=== PATIENT | female | born 1945 | race Caucasian/White ===

== ENCOUNTER → 2016-12-14 | Outpatient (REF) | payer MEDICARE ==
[~2016-12-14] MED LIST: /PRAV20TA; /WARF25TA; ACET65TA; ASPIRIN; ATEN50TA2; BENA40TA2; FURO20TA2; KLOR10TA; METF750T; MILKSUS; MULTIVIT; PEPC20TA2; PERC5TAB8; [UNRECOGNIZED DRUG - OTHER]; [UNRECOGNIZED DRUG - REMARK]; dulcolax
[2016-12-14 17:47] LABS: ALBUMIN 3.6 GM/DL (3.2-5.2); ALBUMIN/GLOBULIN RATIO 1.06 (1.00-1.93); ALKALINE PHOSPHATASE 79 U/L (45-117); ALT/SGPT 41 U/L (12-78); ANION GAP 9 MEQ/L (8-16); AST/SGOT 36 U/L (15-37); BILIRUBIN,TOTAL 0.5 MG/DL (0.2-1.0); BLOOD UREA NITROGEN 13 MG/DL (7-18); CALCIUM LEVEL 9.4 MG/DL (8.8-10.2); CARBON DIOXIDE LEVEL 28 MEQ/L (21-32); CHLORIDE LEVEL 102 MEQ/L (98-107); CHOLESTEROL LEVEL 150 MG/DL (<200); CREATININE FOR GFR 0.67 MG/DL (0.55-1.02); GLOMERULAR FILTRATION RATE > 60.0 (>39); GLUCOSE, FASTING 119 MG/DL (83-110); POTASSIUM SERUM 4.4 MEQ/L (3.5-5.1); SODIUM LEVEL 139 MEQ/L (136-145); TRIGLYCERIDES LEVEL 137 MG/DL (<150)
== END ==
LOC: M SFHCCAPE 08:37
PROVIDERS: ATTEND Physician Assistant
DX: I10 Essential (primary) hypertension (principal); E11.8 Type 2 diabetes mellitus with unspecified complications; E78.2 Mixed hyperlipidemia

== ENCOUNTER → 2017-03-11 | Outpatient (REF) | payer MEDICARE ==
[2017-03-11 17:06] LABS: ALBUMIN 3.7 GM/DL (3.2-5.2); ALBUMIN/GLOBULIN RATIO 1.12 (1.00-1.93); ALKALINE PHOSPHATASE 73 U/L (45-117); ALT/SGPT 43 U/L (12-78); ANION GAP 10 MEQ/L (8-16); AST/SGOT 36 U/L (15-37); BILIRUBIN,TOTAL 0.5 MG/DL (0.2-1.0); BLOOD UREA NITROGEN 9 MG/DL (7-18); CALCIUM LEVEL 9.7 MG/DL (8.8-10.2); CARBON DIOXIDE LEVEL 27 MEQ/L (21-32); CHLORIDE LEVEL 102 MEQ/L (98-107); CREATININE FOR GFR 0.68 MG/DL (0.55-1.02); GLOMERULAR FILTRATION RATE > 60.0 (>39); GLUCOSE, FASTING 178 MG/DL (83-110); POTASSIUM SERUM 4.7 MEQ/L (3.5-5.1); SODIUM LEVEL 139 MEQ/L (136-145)
== END ==
LOC: M SFHCCAPE 07:20
PROVIDERS: ATTEND Physician Assistant
DX: E11.9 Type 2 diabetes mellitus without complications (principal)

== ENCOUNTER → 2017-06-16 | Outpatient (REF) | payer MEDICARE ==
[2017-06-16 18:46] LABS: BASO % 0.6 % (0.0-1.0); EOS # 0.1 10^3/uL (0.0-0.50); EOS % 2.8 % (0.0-3.0); IMMATURE GRANULOCYTE % 0.2 % (0-0); LYMPH # 1.7 10^3/uL (1.5-4.5); LYMPH % 36.6 % (24.0-44.0); MEAN CORPUSCULAR HEMOGLOBIN 26.6 pg (27.0-33.0); MEAN CORPUSCULAR HGB CONC 31.1 g/dl (32.0-36.5); MEAN CORPUSCULAR VOLUME 85.6 fl (80.0-96.0); MONO # 0.4 10^3/uL (0.0-0.8); MONO % 9.2 % (0.0-5.0); NEUTROPHILS # 2.4 10^3/uL (1.8-7.7); NEUTROPHILS % 50.6 % (36.0-66.0); PLATELET COUNT, AUTOMATED 146 10^3/uL (150-450); RED CELL DISTRIBUTION WIDTH 15.7 % (11.5-14.5); WHITE BLOOD COUNT 4.7 10^3/uL (4.0-10.0)
[2017-06-16 19:03] LABS: ALBUMIN 3.7 GM/DL (3.2-5.2); ALBUMIN/GLOBULIN RATIO 1.12 (1.00-1.93); ALKALINE PHOSPHATASE 85 U/L (45-117); ALT/SGPT 45 U/L (12-78); ANION GAP 9 MEQ/L (8-16); AST/SGOT 43 U/L (7-37); BILIRUBIN,TOTAL 0.7 MG/DL (0.2-1.0); BLOOD UREA NITROGEN 10 MG/DL (7-18); CALCIUM LEVEL 9.7 MG/DL (8.8-10.2); CARBON DIOXIDE LEVEL 28 MEQ/L (21-32); CHLORIDE LEVEL 101 MEQ/L (98-107); CHOLESTEROL LEVEL 144 MG/DL (<200); CREATININE FOR GFR 0.61 MG/DL (0.55-1.02); FREE T4 1.18 NG/DL (0.76-1.46); GLOMERULAR FILTRATION RATE > 60.0 (>39); GLUCOSE, FASTING 127 MG/DL (83-110); POTASSIUM SERUM 4.3 MEQ/L (3.5-5.1); SODIUM LEVEL 138 MEQ/L (136-145); TRIGLYCERIDES LEVEL 166 MG/DL (<150)
== END ==
LOC: M SFHCCAPE 07:18
PROVIDERS: ATTEND Physician Assistant
DX: E11.9 Type 2 diabetes mellitus without complications (principal); E78.2 Mixed hyperlipidemia

== ENCOUNTER → 2017-11-09 | Outpatient (REF) | payer MEDICARE ==
[2017-11-09 16:44] LABS: BASO % 0.5 % (0.0-1.0); EOS # 0.2 10^3/uL (0.0-0.50); EOS % 3.5 % (0.0-3.0); HEMATOCRIT 37.6 % (36.0-47.0); HEMOGLOBIN 11.9 g/dl (12.0-15.5); IMMATURE GRANULOCYTE % 0.2 % (0-3.0); LYMPH # 1.8 10^3/uL (1.5-4.5); LYMPH % 30.8 % (24.0-44.0); MEAN CORPUSCULAR HEMOGLOBIN 26.3 pg (27.0-33.0); MEAN CORPUSCULAR HGB CONC 31.6 g/dl (32.0-36.5); MONO # 0.5 10^3/uL (0.0-0.8); MONO % 8.6 % (0.0-5.0); NEUTROPHILS # 3.2 10^3/uL (1.8-7.7); NEUTROPHILS % 56.4 % (36.0-66.0); PLATELET COUNT, AUTOMATED 131 10^3/uL (150-450); RED BLOOD COUNT 4.53 10^6/uL (4.00-5.40); RED CELL DISTRIBUTION WIDTH 15.7 % (11.5-14.5); WHITE BLOOD COUNT 5.7 10^3/uL (4.0-10.0)
[2017-11-09 17:12] LABS: ALBUMIN 3.5 GM/DL (3.2-5.2); ALBUMIN/GLOBULIN RATIO 1.03 (1.00-1.93); ALKALINE PHOSPHATASE 77 U/L (45-117); ALT/SGPT 81 U/L (12-78); ANION GAP 10 MEQ/L (8-16); AST/SGOT 77 U/L (7-37); BILIRUBIN,TOTAL 0.3 MG/DL (0.2-1.0); BLOOD UREA NITROGEN 13 MG/DL (7-18); CALCIUM LEVEL 9.5 MG/DL (8.8-10.2); CARBON DIOXIDE LEVEL 24 MEQ/L (21-32); CHLORIDE LEVEL 105 MEQ/L (98-107); CHOLESTEROL LEVEL 143 MG/DL (<200); CHOLESTEROL RISK RATIO 3.972 (<5); CREATININE FOR GFR 0.69 MG/DL (0.55-1.30); FREE T4 1.13 NG/DL (0.76-1.46); GLOMERULAR FILTRATION RATE > 60.0 (>39); GLUCOSE, FASTING 132 MG/DL (70-100); HDL CHOLESTEROL 36 MG/DL (>40); LDL CHOLESTEROL 73.6 MG/DL (<100); NON-HDL-C 107 MG/DL; POTASSIUM SERUM 4.5 MEQ/L (3.5-5.1); SODIUM LEVEL 139 MEQ/L (136-145); TOTAL PROTEIN 6.9 GM/DL (6.4-8.2); TRIGLYCERIDES LEVEL 167 MG/DL (<150)
[2017-11-09 23:22] LABS: ESTIMATED AVERAGE GLUCOSE 192 MG/DL (60-110); HEMOGLOBIN A1c 8.3 %
== END ==
LOC: M SFHCCAPE 07:47
DX: E78.2 Mixed hyperlipidemia (principal); R94.6 Abnormal results of thyroid function studies; E11.9 Type 2 diabetes mellitus without complications
CPT/HCPCS: 84443

== ENCOUNTER → 2017-11-29 | Outpatient (CLI) | payer MEDICARE | LOC: M RAD 07:00 | DX: R74.8 Abnormal levels of other serum enzymes (principal); K76.0 Fatty (change of) liver, not elsewhere classified | CPT/HCPCS: 76700 ==

== ENCOUNTER → 2018-02-07 | Outpatient (REF) | payer MEDICARE ==
[2018-02-07 16:19] LABS: BASO % 0.4 % (0.0-1.0); EOS # 0.3 10^3/uL (0.0-0.50); EOS % 5.3 % (0.0-3.0); HEMATOCRIT 38.1 % (36.0-47.0); HEMOGLOBIN 12.2 g/dl (12.0-15.5); IMMATURE GRANULOCYTE % 0.2 % (0-3.0); LYMPH # 1.5 10^3/uL (1.5-4.5); LYMPH % 31.2 % (24.0-44.0); MEAN CORPUSCULAR HEMOGLOBIN 26.9 pg (27.0-33.0); MEAN CORPUSCULAR VOLUME 84.1 fl (80.0-96.0); MONO # 0.4 10^3/uL (0.0-0.8); MONO % 8.6 % (0.0-5.0); NEUTROPHILS # 2.6 10^3/uL (1.8-7.7); NEUTROPHILS % 54.3 % (36.0-66.0); PLATELET COUNT, AUTOMATED 145 10^3/uL (150-450); RED BLOOD COUNT 4.53 10^6/uL (4.00-5.40); RED CELL DISTRIBUTION WIDTH 15.4 % (11.5-14.5); WHITE BLOOD COUNT 4.9 10^3/uL (4.0-10.0)
[2018-02-07 16:44] LABS: ALBUMIN 3.7 GM/DL (3.2-5.2); ALBUMIN/GLOBULIN RATIO 1.19 (1.00-1.93); ALKALINE PHOSPHATASE 68 U/L (45-117); ALT/SGPT 29 U/L (12-78); ANION GAP 10 MEQ/L (8-16); AST/SGOT 28 U/L (7-37); BILIRUBIN,TOTAL 0.4 MG/DL (0.2-1.0); BLOOD UREA NITROGEN 8 MG/DL (7-18); CALCIUM LEVEL 9.7 MG/DL (8.8-10.2); CARBON DIOXIDE LEVEL 28 MEQ/L (21-32); CHLORIDE LEVEL 102 MEQ/L (98-107); CHOLESTEROL LEVEL 142 MG/DL (<200); CHOLESTEROL RISK RATIO 3.837 (<5); CREATININE FOR GFR 0.57 MG/DL (0.55-1.30); GLOMERULAR FILTRATION RATE > 60.0 (>39); GLUCOSE, FASTING 133 MG/DL (70-100); HDL CHOLESTEROL 37 MG/DL (>40); LDL CHOLESTEROL 67.2 MG/DL (<100); NON-HDL-C 105 MG/DL; POTASSIUM SERUM 4.3 MEQ/L (3.5-5.1); SODIUM LEVEL 140 MEQ/L (136-145); TOTAL PROTEIN 6.8 GM/DL (6.4-8.2); TRIGLYCERIDES LEVEL 189 MG/DL (<150)
[2018-02-07 18:03] LABS: ESTIMATED AVERAGE GLUCOSE 163 MG/DL (60-110); HEMOGLOBIN A1c 7.3 %
== END ==
LOC: M SFHCCAPE 07:43
DX: E11.9 Type 2 diabetes mellitus without complications (principal); E78.2 Mixed hyperlipidemia
CPT/HCPCS: 80053

== ENCOUNTER → 2018-06-20 | Outpatient (REF) | payer MEDICARE ==
[2018-06-20 17:48] LABS: ALBUMIN 3.7 GM/DL (3.2-5.2); ALBUMIN/GLOBULIN RATIO 1.19 (1.00-1.93); ALKALINE PHOSPHATASE 73 U/L (45-117); ALT/SGPT 25 U/L (12-78); ANION GAP 8 MEQ/L (8-16); AST/SGOT 23 U/L (7-37); BILIRUBIN,TOTAL 0.5 MG/DL (0.2-1.0); BLOOD UREA NITROGEN 12 MG/DL (7-18); CALCIUM LEVEL 9.7 MG/DL (8.8-10.2); CARBON DIOXIDE LEVEL 27 MEQ/L (21-32); CHLORIDE LEVEL 101 MEQ/L (98-107); CHOLESTEROL LEVEL 161 MG/DL (<200); CHOLESTEROL RISK RATIO 3.833 (<5); CREATININE FOR GFR 0.72 MG/DL (0.55-1.30); GLOMERULAR FILTRATION RATE > 60.0 (>39); GLUCOSE, FASTING 143 MG/DL (70-100); HDL CHOLESTEROL 42 MG/DL (>40); LDL CHOLESTEROL 85 MG/DL (<100); NON-HDL-C 119 MG/DL; POTASSIUM SERUM 4.3 MEQ/L (3.5-5.1); SODIUM LEVEL 136 MEQ/L (136-145); TOTAL PROTEIN 6.8 GM/DL (6.4-8.2); TRIGLYCERIDES LEVEL 170 MG/DL (<150)
[2018-06-20 17:54] LABS: BASO % 0.4 % (0.0-1.0); EOS # 0.2 10^3/uL (0.0-0.50); EOS % 3.1 % (0.0-3.0); HEMATOCRIT 38.5 % (36.0-47.0); HEMOGLOBIN 12.2 g/dl (12.0-15.5); IMMATURE GRANULOCYTE % 0.4 % (0-3.0); LYMPH # 1.4 10^3/uL (1.5-4.5); LYMPH % 28.4 % (24.0-44.0); MEAN CORPUSCULAR HGB CONC 31.7 g/dl (32.0-36.5); MEAN CORPUSCULAR VOLUME 85.2 fl (80.0-96.0); MONO # 0.5 10^3/uL (0.0-0.8); MONO % 9.5 % (0.0-5.0); NEUTROPHILS # 2.8 10^3/uL (1.8-7.7); NEUTROPHILS % 58.2 % (36.0-66.0); PLATELET COUNT, AUTOMATED 122 10^3/uL (150-450); RED BLOOD COUNT 4.52 10^6/uL (4.00-5.40); RED CELL DISTRIBUTION WIDTH 15.5 % (11.5-14.5); WHITE BLOOD COUNT 4.8 10^3/uL (4.0-10.0)
[2018-06-20 18:09] LABS: ESTIMATED AVERAGE GLUCOSE 169 MG/DL (60-110); HEMOGLOBIN A1c 7.5 %
== END ==
LOC: M SFHCCAPE 08:31
DX: D69.6 Thrombocytopenia, unspecified (principal); I10 Essential (primary) hypertension; E11.9 Type 2 diabetes mellitus without complications
CPT/HCPCS: 80053

== ENCOUNTER → 2018-06-27 | Outpatient (REF) | payer MEDICARE ==
[2018-06-27 17:37] LABS: MALB URINE SIEMENS 8.7 MG/L; MAU/CREAT RATIO 7.6 MCG/MG (0.0-30.0)
== END ==
LOC: M SFHCCAPE 16:19
PROVIDERS: ATTEND Physician Assistant
DX: E11.9 Type 2 diabetes mellitus without complications (principal); Z23 Encounter for immunization
CPT/HCPCS: 82043; 90682; 90732; G0008; G0009; G0463

== ENCOUNTER → 2018-11-08 | Outpatient (REF) | payer MEDICARE ==
[~2018-11-08] MED LIST changes: -/PRAV20TA; -/WARF25TA; +COUM1TAB18; +PRAV1TAB39
[2018-11-08 17:46] LABS: BASO % 0.4 % (0.0-1.0); EOS # 0.2 10^3/uL (0.0-0.50); EOS % 3.5 % (0.0-3.0); HEMOGLOBIN 12.1 g/dl (12.0-15.5); LYMPH # 1.8 10^3/uL (1.5-4.5); LYMPH % 34.4 % (24.0-44.0); MEAN CORPUSCULAR HEMOGLOBIN 26.6 pg (27.0-33.0); MEAN CORPUSCULAR VOLUME 85.7 fl (80.0-96.0); MONO # 0.4 10^3/uL (0.0-0.8); MONO % 8.3 % (0.0-5.0); NEUTROPHILS # 2.7 10^3/uL (1.8-7.7); NEUTROPHILS % 53.2 % (36.0-66.0); PLATELET COUNT, AUTOMATED 160 10^3/uL (150-450); RED BLOOD COUNT 4.55 10^6/uL (4.00-5.40); WHITE BLOOD COUNT 5.1 10^3/uL (4.0-10.0)
[2018-11-08 17:49] LABS: ALBUMIN 3.6 GM/DL (3.2-5.2); ALT/SGPT 29 U/L (12-78); BILIRUBIN,TOTAL 0.5 MG/DL (0.2-1.0); BLOOD UREA NITROGEN 14 MG/DL (7-18); CALCIUM LEVEL 10.2 MG/DL (8.8-10.2); CARBON DIOXIDE LEVEL 25 MEQ/L (21-32); CHLORIDE LEVEL 104 MEQ/L (98-107); CHOLESTEROL LEVEL 181 MG/DL (<200); CHOLESTEROL RISK RATIO 4.209 (<5); CREATININE FOR GFR 0.66 MG/DL (0.55-1.30); GLOMERULAR FILTRATION RATE > 60.0 (>39); GLUCOSE, FASTING 137 MG/DL (70-100); HDL CHOLESTEROL 43 MG/DL (>40); LDL CHOLESTEROL 99 MG/DL (<100); NON-HDL-C 138 MG/DL; POTASSIUM SERUM 4.3 MEQ/L (3.5-5.1); SODIUM LEVEL 137 MEQ/L (136-145); TOTAL PROTEIN 6.9 GM/DL (6.4-8.2); TRIGLYCERIDES LEVEL 194 MG/DL (<150)
[2018-11-08 17:52] LABS: HEMOGLOBIN A1c 8.4 %
[2018-11-09 10:51] LABS: HEPATITIS C VIRUS ABY INDEX 0.1 INDEX (<0.8)
[2018-11-09 10:52] LABS: HIV 1&2 SCREEN CENTAUR NEGATIVE (NEGATIVE)
== END ==
LOC: M SFHCCAPE 07:21
PROVIDERS: ATTEND Physician Assistant
DX: D69.6 Thrombocytopenia, unspecified (principal); E11.9 Type 2 diabetes mellitus without complications; E78.2 Mixed hyperlipidemia

== ENCOUNTER 2019-01-01 08:07 | Emergency (ER) | payer MEDICARE ==
[~2019-01-01] VITALS: Ht 160 cm; Wt 87.3 kg
[2019-01-01] MEDS ORDERED: MORPHINE 2 MG/ML 1ML SYRINGE (J2270) IV PRN (09:45)
[2019-01-01] MEDS ORDERED: ONDANSETRON 4MG/2ML VIAL (J2405) IV ONE (09:45)
--- NOTE | 2019-01-01 10:27 | REP ---
LUMBAR SPINE, FIVE VIEWS: Hospital course Right sciatica. There is no acute fracture or subluxation. There is an old compression fracture of the L3 vertebral body with minimal height loss. The lumbar intervertebral discs are decreased in height consistent with disc degeneration. Osteophytes are present throughout the lumbar spine. There is narrowing of the L4-5 and L5-S1 facet joints. IMPRESSION: Degenerative change as described above. Electronically Signed by Nahid Enciso MD 01/01/2019 10:37 A
--- NOTE | 2019-01-01 12:25 | REP ---
MR LUMBAR SPINE WITHOUT CONTRAST: HISTORY: Right L5-S1 radicular pain. Decreased signal intensity on T2-weighted images is present in the lumbar intervertebral discs. The discs are decreased in height. These findings are consistent with disc degeneration. A diffuse disc bulge is present at the L1-2 level. There is hypertrophy of the ligamenta flava and posterior articulating facets. These findings produce minimal central canal stenosis. The L1 nerves exit the neural foramina without compression. A diffuse disc bulge is present at the L2-3 level. There is hypertrophy of the ligamenta flava and posterior articulating facets. These findings produced mild central canal stenosis. The L2 nerves exit the neural foramina without compression. A diffuse disc bulge is present at the L3-4 level. There is hypertrophy of the ligamenta flava and posterior articulating facets. These findings produce mild central canal stenosis. The L3 nerves exit the neural foramina without compression. A diffuse disc bulge and small central disc protrusion are present at the L4-5 level. There is hypertrophy of the ligamenta flava and posterior articulating facets. These findings produce severe central canal stenosis. The L4 nerves exit the neural foramina without compression. A diffuse disc bulge is present at the L5-S1 level. There is minimal compression of the thecal sac. There is hypertrophy of the posterior articulating facets. The L5 nerves exit the neural foramina without compression. There is an expansile lesion in the left L5 facet and lamina. Decreased signal intensity on T1 weighted images is present in the L1 vertebral body. There is right posterior expansion with minimal thecal sac compression. These findings are consistent with a metastases. Increased signal intensity on T2-weighted images is present in the endplates of the L2 through L5 vertebral bodies. This represents degenerative change. There is an old compression fracture of the L3 vertebral body with minimal height loss. There is no subluxation. IMPRESSION: 1. Minimal central canal stenosis at the L1-2 level secondary to disc bulge, ligamentous and facet hypertrophy. 2. Mild central canal stenosis at the L2-3 and L3-4 levels secondary to disc bulge, ligamentous and facet hypertrophy. 3. Severe central canal stenosis at the L4-5 level secondary to disc bulge, disc protrusion, ligamentous and facet hypertrophy. 4. Diffuse disc bulge at the L5-S1 level with minimal thecal sac compression. 5. There are metastatic lesions in the L1 vertebral body and left L5 facet and lamina. There is minimal expansion of the L1 vertebral body with minimal thecal sac compression. Electronically Signed by Nahid Enciso MD 01/01/2019 12:53 P
[2019-01-01 13:01] LABS: BASO % 0.2 % (0.0-1.0); EOS % 0.7 % (0.0-3.0); HEMATOCRIT 36.8 % (36.0-47.0); HEMOGLOBIN 11.6 g/dl (12.0-15.5); LYMPH # 1.9 10^3/uL (1.5-4.5); LYMPH % 32.4 % (24.0-44.0); MEAN CORPUSCULAR HEMOGLOBIN 26.4 pg (27.0-33.0); MEAN CORPUSCULAR HGB CONC 31.5 g/dl (32.0-36.5); MEAN CORPUSCULAR VOLUME 83.8 fl (80.0-96.0); MONO # 0.6 10^3/uL (0.0-0.8); MONO % 9.5 % (0.0-5.0); NEUTROPHILS # 3.4 10^3/uL (1.8-7.7); PLATELET COUNT, AUTOMATED 151 10^3/uL (150-450); RED BLOOD COUNT 4.39 10^6/uL (4.00-5.40); WHITE BLOOD COUNT 5.9 10^3/uL (4.0-10.0)
[2019-01-01 13:25] LABS: BLOOD UREA NITROGEN 32 MG/DL (7-18); CALCIUM LEVEL 9.6 MG/DL (8.8-10.2); CARBON DIOXIDE LEVEL 23 MEQ/L (21-32); CHLORIDE LEVEL 109 MEQ/L (98-107); CREATININE FOR GFR 0.53 MG/DL (0.55-1.30); GLOMERULAR FILTRATION RATE > 60.0 (>39); GLUCOSE, FASTING 95 MG/DL (70-100); POTASSIUM SERUM 3.9 MEQ/L (3.5-5.1); SODIUM LEVEL 141 MEQ/L (136-145)
--- NOTE | 2019-01-01 13:28 | REP ---
Chest one-view HISTORY: Metastasis Comparison: 11/01/2009 The lungs are clear. The heart is normal in size. The thoracic aorta is tortuous. The pulmonary vasculature is normal in appearance. Impression: No acute disease. Electronically Signed by Nahid Enciso MD 01/01/2019 01:18 P
[2019-01-01] MEDS ORDERED: METOPROLOL 5 MG/5 ML VIAL IV STA (15:33)
[2019-01-01] MEDS ORDERED: METF850T4 PO (15:36)
[2019-01-01] MEDS ORDERED: GLIP10TA18 PO (15:36)
[2019-01-01] MEDS ORDERED: ATEN100T PO (15:36)
[2019-01-01] MEDS ORDERED: OMEP20CA3 PO (15:36)
[2019-01-01] MEDS ORDERED: BENA40TA7 PO (15:36)
[2019-01-01] MEDS ORDERED: PRAV20TA2 PO (15:36)
[2019-01-01] MEDS ORDERED: dexameTHASONE 20 MG/5 ML VIAL (J1100) IV ONE (15:45)
[2019-01-01 17:03] VITALS: BP 126/95
--- NOTE | 2019-01-01 17:03 | HPEPDOC ---
General Date of Admission Date of Service: Jan 01, 2019 Chief Complaint The patient is a 73-year-old female admitted with a reason for visit of back pain. History of Present Illness 73 yo F with a history of HTN, HLD, DM, presented to the ED for not being able to walk. She developed RLE weakness about 5 weeks ago, gradually worsening. She reached the point where she cannot walk any more. Therefore, she presented to the ED at [facility]. She denies stool or urinary incontinence. She denies a fever, chills, night sweat or weight loss. She does not have a good appetite in general. She had a few episodes of diarrhea, and she attributes it to taking metformin. She denies chest pain, palpitation, or shortness of breath. In the ED, the patient had lumbar DX, and lumbar MRI. It shows metastatic les ions in L1 (large lesion) and L5 (small lesion). Given the fact that patients who receive neurosurgical intervention (if eligible for surgery) have better prognosis than those who receive radiation therapy, the patient is transferred to [facility] for optimal care. [facility] does not have neurosurgery service. She also has a newly diagnosed atrial fibrillation. She received IV de xamethasone 10 mg and metoprolol 5 mg IV at 16:00pm. She received additional diltiazem IV 10 mg at 17pm with PO diltiazem 60 mg short acting at 17:10pm. [facility], [place], operated by [facility] was contacted by me, and the patient was accepted under care of Dr. Siddiqui. Home Medications Scheduled Atenolol (Atenolol) 100 Mg Tablet, 100 MG PO DAILY, (Reported) Benazepril HCl (Benazepril HCl) 40 Mg Tablet, 40 MG PO BID, (Reported) Glipizide (Glipizide ER) 10 Mg Tab.er.24, 10 MG PO DAILY, (Reported) Metformin HCl (Metformin HCl) 850 Mg Tablet, 850 MG PO BID, (Reported) Omeprazole (Omeprazole) 20 Mg Capsule.dr, 20 MG PO DAILY, (Reported) Pravastatin Sodium (Pravastatin Sodium) 20 Mg Tablet, 20 MG PO QHS, (Reported) Allergies Coded Allergies: Sulfa (Sulfonamide Antibiotics) (Verified Allergy, Unknown, "puts me to sleep", 01/01/19) Past Medical History Medical History HTN, HLD, DM Surgical History No major surgery Family History Significant Family History: Diabetes Mother DM Social History * Smoker: Denies Alcohol: Denies Drugs: denies see above A-FIB/CHADSVASC A-FIB History Current/History of A-Fib/PAF?: Yes Current PO Anticoag Therapy: No Review of Systems Constitutional: Reports: Other (no appetite) Eyes: Denies: Pain, Vision change, Conjunctivae inflammation, Eyelid inflammation, Redness, Other ENT: Denies: Head Aches, Ear Pain, Dysphagia, Sinus Congestion, Post Nasal Drip, Sore Throat, Epistaxis, Other Symptoms Skin: Denies: Rash, Lesions, Jaundice, Bruising, Itching, Dry, Breakdown, Nail Changes, Other Pulmonary: Denies: Dyspnea, Cough, Pleuritic Chest Pain, Other Symptoms Cardiovascular: Denies: Chest Pain, Palpitations, Orthopnea, Paroxysmal Noc. Dyspnea, Edema, Lt Headedness, Other Symptoms Gastrointestinal: Denies: Nausea, Vomiting, Abdominal Pain, Diarrhea, Constipation, Melena, Hematochezia, Other Symptoms Genitourinary: Denies: Dysuria, Frequency, Incontinence, Hematuria, Retention, Other Symptoms Hematologic: Denies: Bruising, Bleeding Excessively, Petecchia, Purpura, Enlarged Lymph Nodes, Other Hematologic Endocrine: Denies: Polydipsia, Polyphagia, Polyuria, Heat Intolerance, Cold Intolerance, Other Endocrine Sx Musculoskeletal: Reports: Back Pain Neurological: Reports: Weakness Psych: Denies: Mood Normal, Anxiety, Depression, Memory Issues, Thoughts of Self Harm, Anger, Thoughts of Harming Other, Other Psych Physical Examination General Exam: Positive: Alert, Cooperative Eye Exam: Positive: PERRLA ENT Exam: Positive: Atraumatic, Mucous membr. moist/pink Neck Exam: Positive: Supple Chest Exam: Positive: Clear to auscultation Heart Exam: Positive: Tachycardic, Irregular Rhythm Telemetry: Positive: Atrial fibrillation Abdomen Exam: Positive: Normal bowel sounds Extremity Exam: Positive: Other (no edema) Skin Exam: Positive: Nl turgor and temperature Neuro Exam: Positive: Other (RLE extremity movement limited) Psych Exam: Positive: Mood NL Vital Signs Vital Signs Date Time Temp Pulse Resp B/P (MAP) Pulse Ox O2 Delivery O2 Flow Rate FiO2 01/01/19 15:55 109 18 143/98 (113) 96 Room Air 01/01/19 13:39 98.4 Laboratory Data Labs 24H Laboratory Tests 2 01/01/19 12:48: Immature Granulocyte % (Auto) 0.2, White Blood Count 5.9, Red Blood Count 4.39, Hemoglobin 11.6L, Hematocrit 36.8, Mean Corpuscular Volume 83.8, Mean Corpuscular Hemoglobin 26.4L, Mean Corpuscular Hemoglobin Concent 31.5L, Red Cell Distribution Width 16.5H, Platelet Count 151, Neutrophils (%) (Auto) 57.0, Lymphocytes (%) (Auto) 32.4, Monocytes (%) (Auto) 9.5H, Eosinophils (%) (Auto) 0.7, Basophils (%) (Auto) 0.2, Neutrophils # (Auto) 3.4, Lymphocytes # (Auto) 1.9, Monocytes # (Auto) 0.6, Eosinophils # (Auto) 0.0, Basophils # (Auto) 0.0, Nucleated Red Blood Cells % (auto) 0.0, Anion Gap 9, Glomerular Filtration Rate > 60.0, Blood Urea Nitrogen 32H, Creatinine 0.53L, Sodium Level 141, Potassium Level 3.9, Chloride Level 109H, Carbon Dioxide Level 23, Calcium Level 9.6 CBC/BMP Laboratory Tests 01/01/19 12:48 Red Blood Count 4.39, Mean Corpuscular Volume 83.8, Mean Corpuscular Hemoglobin 26.4 L, Mean Corpuscular Hemoglobin Concent 31.5 L, Red Cell Distribution Width 16.5 H, Neutrophils (%) (Auto) 57.0, Lymphocytes (%) (Auto) 32.4, Monocytes (%) (Auto) 9.5 H, Eosinophils (%) (Auto) 0.7, Basophils (%) (Auto) 0.2, Neutrophils # (Auto) 3.4, Lymphocytes # (Auto) 1.9, Monocytes # (Auto) 0.6, Eosinophils # (Auto) 0.0, Basophils # (Auto) 0.0, Calcium Level 9.6 Problems (1) Malignant neoplasm metastatic to lumbar spine with unknown primary site Status: Acute Problem Text: 73 yo F with a history of DM, HLD, HTN, presented to the ED for RLE pain and being unable to ambulate any more. # Malignant destruction of L1 spinal body and L5 lesion - This is most likely destruction from malignancy. - The patient received dexamethasone 10 mg IV x1 at 4pm. She will need to receive dexamethasone 4 mg q6h until the patient is seen by neurosurgery. - For patients having spinal destruction by malignancy, those who receive neurosurgical intervention do better with less side effects and better quality of life than those who receive radiation therapy first, manifested by major oncologic journals. However, [facility] does not have neurosurgical service. For the benefit of patient care, it is optimal for the patient to be transferred to a major center where neurosurgical consult is available. Radiation oncology needs to be contacted at the same time, and the care needs to be coordinated. If neurosurgery deems that the patient is not a surgical candidate, the patient will benefit radiation oncology consultation. - Primary has not been found. I would order PET/CT or CT CAP, as well as myeloma work up including SPEP, UPEP, light chain ratio, immunofixation or immunoglobulin (IgA, IgG, IgM levels), [id number], and LDH. - MRI and DX studies were uploaded before the patient was transferred. # New onset atrial fibrillation - It was never diagnosed. The patient received metoprolol 5 mg IV at 4pm, and diltiazem 10 IV x1 at 5pm, as well as diltiazem short acting before she was transferred. These were explained to the patient and patient's family in detail, and I spent more than 90 mins to speak with patient and coordinating care. [facility] was contacted, the accepting physician is Dr. Siddiqui. (2) New onset atrial fibrillation Status: Acute Plan / VTE VTE Prophylaxis Ordered?: No (she will need it, especially in the setting of a fib) PRABHJOT RIGGS MD Jan 01, 2019 17:03
[2019-01-01 18:49] VITALS: BP 122/83
--- NOTE | 2019-01-01 19:55 | ECGEPIP ---
[facility] - ED Test Date: 2019-01-01 Pat Name: BIBIANA LOWE Department: Room: - Gender: Female [employer]: : 1945 Requested By: Dariel Thornton Order Number: [id number] Reading MD: Yan Becerra Measurements Intervals [place] Rate: 127 P: TN: -1 QRS: 4 QRSD: 81 T: 23 QT: 298 QTc: 434 Interpretive Statements ATRIAL FIBRILLATION WITH RAPID VENTRICULAR RESPONSE NONSPECIFIC ST & T-WAVE ABNORMALITY ABNORMAL RHYTHM ECG Comparison tracing not on file Electronically Signed on 01-01-2019 19:55:43 EDT by Yan Becerra
== END 2019-01-01 18:58 | disposition home or self-care (01) ==
LOC: M ED 08:07 → EDBD 08:07 → M ED 18:58
DX: I48.91 Unspecified atrial fibrillation (principal); M48.061 Spinal stenosis, lumbar region without neurogenic claudication; C79.51 Secondary malignant neoplasm of bone; C80.1 Malignant (primary) neoplasm, unspecified; R94.31 Abnormal electrocardiogram [ECG] [EKG]; E11.9 Type 2 diabetes mellitus without complications; I10 Essential (primary) hypertension; Z87.81 Personal history of (healed) traumatic fracture; M25.78 Osteophyte, vertebrae; Z79.84 Long term (current) use of oral hypoglycemic drugs; Z79.899 Other long term (current) drug therapy; Z88.2 Allergy status to sulfonamides
CPT/HCPCS: 71045; 72110; 72148; 80048; 85025; 93005; 96374; 96375; 99285; J1100; J2270; J2405

== ENCOUNTER 2019-02-10 11:02 | Inpatient (IN) | payer MEDICARE ==
[~2019-02-10] VITALS: Ht 162.6 cm; Wt 91.7 kg
[~2019-02-10 11:02] MED LIST changes: -ACET-683 PO; -ACET1TAB55 PO; -AMIT25TA PO; -BASA100I SC; +BENA40TA5 PO; -BENA40TA7 PO; -BISA10SU27 PR; -CARD180C4 PO; -COLA100C5 PO; -ELIQ5TAB PO; -ENEMENE22 PR; -GABA-843 PO; -GLUC1KIT IM; -INSUHUMDS SC; -LIDO5DIS41 TD; -MILKSUS3 PO; -MIRA3350 PO; -MULTCAP PO; +OMEP1CAP73 PO; -OMEP20CA4 PO; -PANT40TA3 PO; -SENN8.6T58 PO
[2019-02-10] MEDS ORDERED: INSUHUMDS SC ×2 (11:55→11:56)
[2019-02-10] MEDS ORDERED: BASA100I SC (11:56)
[2019-02-10] MEDS ORDERED: ATEN100T PO (12:00)
[2019-02-10] MEDS ORDERED: ACET-683 PO (12:00)
[2019-02-10] MEDS ORDERED: ELIQ5TAB PO (12:00)
[2019-02-10] MEDS ORDERED: AMIT25TA PO (12:00)
[2019-02-10] MEDS ORDERED: CARD180C4 PO (12:03)
[2019-02-10] MEDS ORDERED: GABA-843 PO (12:03)
[2019-02-10] MEDS ORDERED: COLA100C5 PO (12:03)
[2019-02-10] MEDS ORDERED: LIDO5DIS41 TD (12:05)
[2019-02-10] MEDS ORDERED: MILKSUS3 PO (12:11)
[2019-02-10] MEDS ORDERED: BISA10SU27 PR (12:11)
[2019-02-10] MEDS ORDERED: GLUC1KIT IM (12:11)
[2019-02-10] MEDS ORDERED: ACET1TAB55 PO (12:11)
[2019-02-10] MEDS ORDERED: PRAV20TA2 PO (12:11)
[2019-02-10] MEDS ORDERED: MIRA3350 PO (12:11)
[2019-02-10] MEDS ORDERED: PANT40TA3 PO (12:11)
[2019-02-10] MEDS ORDERED: ENEMENE22 PR (12:11)
[2019-02-10] MEDS ORDERED: MULTCAP PO (12:11)
[2019-02-10] MEDS ORDERED: SENN8.6T58 PO (12:11)
[2019-02-10] MEDS ORDERED: NS 1,000 ML IV SCH (12:27)
[2019-02-10] MEDS ORDERED: MORPHINE 2 MG/ML 1ML VIAL (J2270) IV PRN (12:30)
[2019-02-10] MEDS ORDERED: ONDANSETRON 4MG/2ML VIAL (J2405) IV ONE (12:30)
[2019-02-10 12:56] LABS: BASO % 0.3 % (0.0-1.0); EOS % 0.7 % (0.0-3.0); HEMATOCRIT 32.4 % (36.0-47.0); HEMOGLOBIN 10.2 g/dl (12.0-15.5); LYMPH # 1.3 10^3/uL (1.5-4.5); LYMPH % 21.1 % (24.0-44.0); MEAN CORPUSCULAR HEMOGLOBIN 28.3 pg (27.0-33.0); MEAN CORPUSCULAR HGB CONC 31.5 g/dl (32.0-36.5); MEAN CORPUSCULAR VOLUME 89.8 fl (80.0-96.0); MONO # 0.9 10^3/uL (0.0-0.8); MONO % 14.5 % (0.0-5.0); NEUTROPHILS # 3.8 10^3/uL (1.8-7.7); NEUTROPHILS % 62.6 % (36.0-66.0); PLATELET COUNT, AUTOMATED 156 10^3/uL (150-450); RED BLOOD COUNT 3.61 10^6/uL (4.00-5.40)
[2019-02-10 13:07] LABS: INR 1.53; PROTHROMBIN TIME 18.1 SECONDS (11.8-14.0)
[2019-02-10 13:28] LABS: ALBUMIN 2.2 GM/DL (3.2-5.2); ALT/SGPT 17 U/L (12-78); BILIRUBIN,DIRECT 0.2 MG/DL (0.0-0.2); BILIRUBIN,TOTAL 0.6 MG/DL (0.2-1.0); BLOOD UREA NITROGEN 20 MG/DL (7-18); CALCIUM LEVEL 9.9 MG/DL (8.8-10.2); CARBON DIOXIDE LEVEL 27 MEQ/L (21-32); CHLORIDE LEVEL 106 MEQ/L (98-107); CREATININE FOR GFR 0.48 MG/DL (0.55-1.30); GLOMERULAR FILTRATION RATE > 60.0 (>39); GLUCOSE, FASTING 121 MG/DL (70-100); POTASSIUM SERUM 4.5 MEQ/L (3.5-5.1); SODIUM LEVEL 141 MEQ/L (136-145); TOTAL PROTEIN 5.6 GM/DL (6.4-8.2)
[2019-02-10] MEDS ORDERED: GABAPENTIN 300 MG CAP PO ONE (13:45)
--- NOTE | 2019-02-10 13:56 | REP ---
Portable chest x-ray: Single view. History: Preop. Comparison study: January 01, 2019. Findings: EKG monitoring electrodes overlie the chest. The thoracic aorta is somewhat tortuous as before. Heart is at the upper range of normal in size. No infiltrate is seen in the lung garza. The pleural angles are sharp. There are degenerative changes in the right shoulder. No bony destructive lesion is appreciated. Impression: Mildly prominent heart. Otherwise no acute disease on this supine AP radiograph. Electronically Signed by Laurent Land MD 02/10/2019 02:30 P
[2019-02-10] MEDS ORDERED: BISACODYL 10 MG SUPP PR PRN (15:00)
--- NOTE | 2019-02-10 15:11 | HPEPDOC ---
[facility] Medical History & Physical Date of Admission Feb 10, 2019 Date of Service: Feb 10, 2019 Attending Physician: Jr Wong Collins History and Physical CHIEF COMPLAINT: fracture of right femur HISTORY OF PRESENT ILLNESS: Pt is 73 y/o F with PMHx listed as below was brought to ED from [facility] due to femure fracture. Pt was admitted to [facility] on 01/01 with chief complaint of severe right hip pain for which underwent MRI of lumbar spine that revealed L1 lesion, further imaging studies showed bilobed mass within the retroperitoneum in LUQ of abdomen, the mass is growing into Lt renal vein and there is no adrenal gland identified. There is expansile lesions within L1 and 5 vertebrea, As per bone scan there is metastatic bone disease in L1 scapula Rt femur and iliac bone. Left adrenal mass core biopsy was suggestive of adrenal cortical carcinoma. Pt underwent a single fraction of radiation therapy to Rt femur and subsequently was discharge on 01/13 to [facility] for further rehabilitation. Today she was exercising when sustained an acute intertrochanteric femur fracture on right side. Upon my encounter pt is awake alert and oriented no acute distress, denies any chest pain, dyspnea or tachypnea. significant external rotation of Rt lower extremity is seen. Denies any bleeding, denies any trauma to head or other parts. PAST MEDICAL HISTORY: 1. metastatic adrenal cortical carcinoma 2. afib on eliquis 3. T2DM 4. HTN PAST SURGICAL HISTORY: 1. s/p biopsy of retroperitoneal mass SOCIAL HISTORY: Pt lives at [facility], two sons at bedside, denies any smoking, ETOH or illicit drug use FAMILY HISTORY: not pertinent ALLERGIES: Please see below. REVIEW OF SYSTEMS: 10 point negative except HPI HOME MEDICATIONS: Please see below. PHYSICAL EXAMINATION: VITAL SIGNS: please see below GENERAL APPEARANCE: AAOx3 NAD HEENT: ZAINA EOMI pale neck supple no icterus CARDIOVASCULAR: S1 S2 RRR LUNGS: clear bilat no wheezing no rales ABDOMEN: soft distended possible ascites MUSCULOSKELETAL: no deformity EXTREMITIES: markedly external rotation of RT Lower extremity NEUROLOGICAL: motor sensory grossly intact PSYCHIATRIC: mood affect appropriate LABORATORY DATA: See below. IMAGING: KUB: Two views. History: Abdomen pain. Findings: There is a pathologic fracture seen at the edge of the field of view in the right proximal femur with a lytic lesion. There is ill defined radiolucency in the posterior elements at the lumbosacral junction. There is moderate stool in the ascending colon. Air and stool is seen in the descending colon and rectum. No obstruction is seen. There are multiple loops of air-filled mildly prominent small bowel in the central abdomen. Impression: Central abdominal small bowel loops. No obstructive lesion seen. Moderate stool in the ascending colon and rectum. Pathologic fracture in the right proximal femur. Ill-defined radiolucency in the posterior elements at L5. MICROBIOLOGY: Please see below. Vital Signs Date Time Temp Pulse Resp B/P (MAP) Pulse Ox O2 Delivery O2 Flow Rate FiO2 02/10/19 22:45 128 123/69 (87) 84 02/10/19 22:30 127 123/70 (87) 77 02/10/19 22:15 132 112/82 (92) 88 02/10/19 22:00 132 111/62 (78) 96 02/10/19 21:56 125/77 (93) 02/10/19 21:45 137 96 02/10/19 21:30 132 02/10/19 21:15 138 02/10/19 21:00 134 02/10/19 20:45 134 02/10/19 19:45 124 19 127/95 (106) 98 02/10/19 19:30 118 19 128/86 (100) 96 02/10/19 19:00 116 19 126/86 (99) 96 02/10/19 18:45 118 18 143/96 (112) 96 02/10/19 18:15 113 120/80 (93) 95 02/10/19 18:00 109 129/90 (103) 96 02/10/19 17:45 120 143/91 (108) 96 02/10/19 17:30 117 137/96 (110) 97 02/10/19 17:00 120 141/86 (104) 97 02/10/19 16:45 111 141/86 (104) 99 02/10/19 16:30 113 134/92 (106) 98 02/10/19 16:15 110 133/95 (108) 99 02/10/19 16:00 104 135/85 (102) 95 02/10/19 15:00 102 18 118/84 (95) 94 Room Air 02/10/19 14:32 111 95 Room Air 02/10/19 14:02 102 93 Room Air 02/10/19 13:32 101 98 Room Air 02/10/19 13:09 18 02/10/19 13:02 96 97 Room Air 02/10/19 12:59 18 02/10/19 12:32 87 97 Room Air 02/10/19 12:02 93 97 02/10/19 11:32 112 97 02/10/19 11:11 100.1 112 18 118/91 96 Room Air Laboratory Tests 02/10/19 12:36: White Blood Count 6.0, Red Blood Count 3.61L, Hemoglobin 10.2L, Hematocrit 32.4L, Mean Corpuscular Volume 89.8, Mean Corpuscular Hemoglobin 28.3, Mean Corpuscular Hemoglobin Concent 31.5L, Red Cell Distribution Width 19.1H, Platelet Count 156, Neutrophils (%) (Auto) 62.6, Lymphocytes (%) (Auto) 21.1L, Monocytes (%) (Auto) 14.5H, Eosinophils (%) (Auto) 0.7, Basophils (%) (Auto) 0.3, Neutrophils # (Auto) 3.8, Lymphocytes # (Auto) 1.3L, Monocytes # (Auto) 0.9H, Eosinophils # (Auto) 0.0, Basophils # (Auto) 0.0, Immature Granulocyte % (Auto) 0.8, Nucleated Red Blood Cells % (auto) 0.0, Prothrombin Time 18.1H, Prothromb Time International Ratio 1.53, Sodium Level 141, Potassium Level 4.5, Chloride Level 106, Carbon Dioxide Level 27, Anion Gap 8, Blood Urea Nitrogen 20H, Creatinine 0.48L, Glomerular Filtration Rate > 60.0, Fasting Glucose 121H, Calcium Level 9.9, Aspartate Amino Transf (AST/SGOT) 28, Alanine Aminotransferase (ALT/SGPT) 17, Alkaline Phosphatase 81, Total Bilirubin 0.6, Direct Bilirubin 0.2, Total Protein 5.6L, Albumin 2.2L, Albumin/Globulin Ratio 0.65L 02/10/19 16:39: Bedside Glucose (Misc Panel) 118H 02/10/19 21:43: Bedside Glucose (Misc Panel) 173H Current Medications Medications (Trade) Dose Ordered Sig/Leslie Route PRN Reason Start Time Stop Time Status Last Admin Dose Admin Amitriptyline HCl (Elavil) 25 mg QHS PO 02/10/19 21:00 02/10/19 21:35 25 MG Docusate Sodium (Colace) 100 mg BID PO 02/10/19 21:00 02/10/19 21:35 100 MG Gabapentin (Neurontin) 300 mg TID PO 02/10/19 16:00 02/10/19 21:43 300 MG Morphine Sulfate (Morphine Sulfate Inj) 2 mg Q30M PRN IV MODERATE PAIN (PS 5-7) 02/10/19 12:30 02/10/19 12:59 2 MG Pantoprazole Sodium (Protonix) 40 mg BID PO 02/10/19 21:00 02/10/19 21:34 40 MG Senna (Senokot) 2 tab QHS PO 02/10/19 21:00 02/10/19 21:34 2 TAB Sodium Chloride 1,000 ml @ 100 mls/hr Q10H IV 02/10/19 12:27 02/10/19 12:59 100 MLS/HR A/P 1-Acute pathologic intertrochanteric fracture of right femur 2-Recently diagnosed adrenal cortical carcinoma with mets to bone 3-Atrial fibrillation with RVR 4-Uncontrolled T2DM 5-s/p one session radiation therapy to Rt leg Ortho consult appreciated Possible OR in AM NPO Hold anticoagulation resume anticoagulation within 12-24 hours for DVT prophylaxis Medical clearance per primary team Pain control monitor CBC for acute blood loss in view of pt on Eliquis FS AC HS Insulin SS Vital Signs Vital Signs Date Time Temp Pulse Resp B/P (MAP) Pulse Ox O2 Delivery O2 Flow Rate FiO2 02/10/19 13:09 18 02/10/19 11:11 100.1 112 118/91 96 Room Air Laboratory Data Labs 24H Laboratory Tests 2 02/10/19 12:36: Immature Granulocyte % (Auto) 0.8, White Blood Count 6.0, Red Blood Count 3.61L, Hemoglobin 10.2L, Hematocrit 32.4L, Mean Corpuscular Volume 89.8, Mean Corpuscular Hemoglobin 28.3, Mean Corpuscular Hemoglobin Concent 31.5L, Red Cell Distribution Width 19.1H, Platelet Count 156, Neutrophils (%) (Auto) 62.6, Lymphocytes (%) (Auto) 21.1L, Monocytes (%) (Auto) 14.5H, Eosinophils (%) (Auto) 0.7, Basophils (%) (Auto) 0.3, Neutrophils # (Auto) 3.8, Lymphocytes # (Auto) 1.3L, Monocytes # (Auto) 0.9H, Eosinophils # (Auto) 0.0, Basophils # (Auto) 0.0, Nucleated Red Blood Cells % (auto) 0.0, Prothrombin Time 18.1H, Prothromb Time International Ratio 1.53, Anion Gap 8, Glomerular Filtration Rate > 60.0, Calcium Level 9.9, Aspartate Amino Transf (AST/SGOT) 28, Alanine Aminotransferase (ALT/SGPT) 17, Alkaline Phosphatase 81, Total Bilirubin 0.6, Direct Bilirubin 0.2, Total Protein 5.6L, Albumin 2.2L, Albumin/Globulin Ratio 0.65L CBC/BMP Laboratory Tests 02/10/19 12:36 Red Blood Count 3.61 L, Mean Corpuscular Volume 89.8, Mean Corpuscular Hemoglobin 28.3, Mean Corpuscular Hemoglobin Concent 31.5 L, Red Cell Distribution Width 19.1 H, Neutrophils (%) (Auto) 62.6, Lymphocytes (%) (Auto) 21.1 L, Monocytes (%) (Auto) 14.5 H, Eosinophils (%) (Auto) 0.7, Basophils (%) (Auto) 0.3, Neutrophils # (Auto) 3.8, Lymphocytes # (Auto) 1.3 L, Monocytes # (Auto) 0.9 H, Eosinophils # (Auto) 0.0, Basophils # (Auto) 0.0 Home Medications Scheduled Acetaminophen (Acetaminophen) 500 Mg Tablet, 1,000 MG PO DAILY AT 0800 Amitriptyline HCl (Amitriptyline HCl) 25 Mg Tablet, 25 MG PO QHS Apixaban (Eliquis) 5 Mg Tablet, 5 MG PO BID Atenolol (Atenolol) 100 Mg Tablet, 100 MG PO DAILY Diltiazem Hcl (Cardizem Cd) 180 Mg Cap.er.24h, 180 MG PO DAILY Docusate Sodium (Colace) 100 Mg Capsule, 100 MG PO BID Gabapentin (Gabapentin) 300 Mg Capsule, 300 MG PO TID Insulin Glargine,Hum.rec.anlog (Basaglar Kwikpen U-100) 100 Unit/1 Ml Insuln.pen, 46 UNIT SC DAILY Insulin Human Lispro (Humalog) 100 Unit/1 Ml Vial, 8 UNITS SC DAILY AT 0800 Insulin Human Lispro (Humalog) 100 Unit/1 Ml Vial, 10 UNITS SC BID BEFORE MEALS AT 1200 AND 1700 Lidocaine (Lidoderm) 5% Adh..patch, 1 PATCH TD DAILY APPLIES TO BACK Multivitamin (Multivitamins) 1 Each Capsule, 1 CAP PO DAILY Pantoprazole Sodium (Pantoprazole Sodium) 40 Mg Tablet.dr, 40 MG PO BID Polyethylene Glycol 3350 (Miralax) 119 Gm Powder, 17 GM PO BID Pravastatin Sodium (Pravastatin Sodium) 20 Mg Tablet, 20 MG PO DAILY Sennosides (Senna) 8.6 Mg Tablet, 17.2 MG PO QHS Scheduled PRN Acetaminophen (Acetaminophen) 325 Mg Tablet, 650 MG PO Q4H PRN for PAIN / FEVER Bisacodyl (Bisacodyl) 10 Mg Supp.rect, 10 MG SC DAILY PRN for CONSTIPATION Glucagon,Human Recombinant (Glucagon Emergency Kit) 1 Mg Vial, 1 MG IM ASDIRECTED PRN for HYPOGLYCEMIA Magnesium Hydroxide (Milk of Magnesia) 400 Mg/5 Ml Oral.susp, 10 ML PO DAILY PRN for CONSTIPATION Sodium Phosphate,[place]-Dibasic (Enema Ready To Use) 133 Ml Enema, 1 DANELLE SC DAILY PRN for CONSTIPATION Allergies Coded Allergies: Sulfa (Sulfonamide Antibiotics) (Verified Allergy, Unknown, "puts me to sleep", 01/01/19) A-FIB/CHADSVASC A-FIB History Current/History of A-Fib/PAF?: Yes Current PO Anticoag Therapy: Yes DORCAS POLANCO MD Feb 10, 2019 15:11
[2019-02-10] MEDS ORDERED: ONDANSETRON 4MG/2ML VIAL (J2405) IV PRN (16:00)
[2019-02-10] MEDS: GABAPENTIN 300 MG CAP PO SCH ×2 (16:00→21:43)
--- NOTE | 2019-02-10 18:05 | REP ---
RIGHT KNEE, TWO VIEWS: Two views of the right knee are performed. Total knee arthroplasty is again noted. I see no acute fracture. On the lateral view there is curvilinear lucency in the distal femur adjacent to the cement bone interface. This could indicate some degree of loosening. I suspect a small joint effusion. Electronically Signed by David Yadav MD 02/12/2019 09:02 P
[2019-02-10] MEDS: HumaLOG INSULIN (NovoLOG) PER UNIT SC SCH (21:00)
[2019-02-10] MEDS: **NOTE PATIENT COMMENT** MISC XX SCH (21:00)
--- NOTE | 2019-02-10 21:09 | ECGEPIP ---
[facility] - ED Test Date: 2019-02-10 Pat Name: BIBIANA LOWE Department: Room: - Gender: Female [employer]: : 1945 Requested By: Danielle Gordillo Order Number: [id number] Reading MD: Dariel Pittman Measurements Intervals Mouthcard Rate: 99 P: FL: -1 QRS: 18 QRSD: 82 T: 55 QT: 338 QTc: 434 Interpretive Statements ATRIAL FIBRILLATION POSSIBLE PRIOR LATERAL INFARCTION RATE CHANGE COMPARED TO 01/01/19 Electronically Signed on 02-10-2019 21:09:14 EDT by Dariel Pittman
[2019-02-10] MEDS: SENNA 8.6 MG TAB (SENOKOT) PO SCH (21:34)
[2019-02-10] MEDS: PANTOPRAZOLE 40MG TAB (PROTONIX) PO SCH (21:34)
[2019-02-10] MEDS: AMITRIPTYLINE 25 MG TAB PO SCH (21:35)
[2019-02-10] MEDS: DOCUSATE SODIUM 100 MG CAP PO SCH (21:35)
[2019-02-10] MEDS ORDERED: GLUCAGON FOR INJ 1 MG VIAL (J1610) SC PRN (22:00)
[2019-02-10] MEDS ORDERED: DEXTROSE 50% 50 ML SYRINGE IV PRN (22:00)
[2019-02-10] MEDS ORDERED: GLUCOSE 4 GM CHEW TABLET PO PRN (22:00)
[2019-02-11] VITALS (7 sets, daily range): BP systolic 109–142; BP diastolic 69–92
[2019-02-11] MEDS: MORPHINE 4 MG/ML 1ML VIAL/SYRINGE (J2270) IV PRN ×2 (03:08→15:44)
[2019-02-11 05:38] LABS: BASO % 0.3 % (0.0-1.0); EOS % 0.3 % (0.0-3.0); HEMOGLOBIN 9.5 g/dl (12.0-15.5); LYMPH # 1.2 10^3/uL (1.5-4.5); LYMPH % 18.6 % (24.0-44.0); MEAN CORPUSCULAR HEMOGLOBIN 27.7 pg (27.0-33.0); MEAN CORPUSCULAR HGB CONC 30.6 g/dl (32.0-36.5); MEAN CORPUSCULAR VOLUME 90.4 fl (80.0-96.0); MONO # 0.9 10^3/uL (0.0-0.8); MONO % 14.2 % (0.0-5.0); NEUTROPHILS # 4.2 10^3/uL (1.8-7.7); NEUTROPHILS % 65.8 % (36.0-66.0); PLATELET COUNT, AUTOMATED 157 10^3/uL (150-450); RED BLOOD COUNT 3.43 10^6/uL (4.00-5.40); WHITE BLOOD COUNT 6.3 10^3/uL (4.0-10.0)
[2019-02-11 05:49] LABS: INR 1.46; PROTHROMBIN TIME 17.5 SECONDS (11.8-14.0)
[2019-02-11 06:13] LABS: ALT/SGPT 13 U/L (12-78); BLOOD UREA NITROGEN 19 MG/DL (7-18); CALCIUM LEVEL 9.1 MG/DL (8.8-10.2); CARBON DIOXIDE LEVEL 26 MEQ/L (21-32); CHLORIDE LEVEL 104 MEQ/L (98-107); CREATININE FOR GFR 0.53 MG/DL (0.55-1.30); GLOMERULAR FILTRATION RATE > 60.0 (>39); GLUCOSE, FASTING 165 MG/DL (70-100); POTASSIUM SERUM 3.9 MEQ/L (3.5-5.1); SODIUM LEVEL 137 MEQ/L (136-145)
[2019-02-11 06:14] LABS: ALBUMIN 1.9 GM/DL (3.2-5.2); BILIRUBIN,TOTAL 0.8 MG/DL (0.2-1.0); TOTAL PROTEIN 5.7 GM/DL (6.4-8.2)
[2019-02-11] MEDS: HumaLOG INSULIN (NovoLOG) PER UNIT SC SCH ×4 (07:30→20:38)
--- NOTE | 2019-02-11 07:52 | CR ---
DATE OF CONSULTATION: 02/10/2019 HISTORY OF PRESENT ILLNESS: She is an unfortunate 73-year-old female who has recently been diagnosed with metastatic adrenal cortical carcinoma. Presented to the emergency room at [facility] 01/01/2019 with progressively difficulty walking with pain in the right hip and leg area for 5 weeks prior. She was required to use a walker, which was prescribed by one of her primary care providers. She eventually could not walk any longer and was found to have a tumor involving her spine and was transferred to [facility] where they treated her there, did the appropriate staging workup and MR scans and CT scans and eventually was found to have a large bilobed adrenal mass in the left adrenal gland with involvement of the spine at L1 and L5 with associated soft tissue mass. There was also involvement of the left scapula and left iliac bone and the right femur. Chemotherapy was deferred as they thought that she needed better rehabilitation before she underwent chemotherapy. Then they initiated radiation treatments to her sub-trochanteric area on the right femur. She has been at [facility] since 01/13/2019. They have been trying to work with her in therapy but she has basically been non-ambulatory but they try to get her up apparently on some type of a table. But while doing so yesterday or the day before felt some increased pain the right leg and femur and was transferred to the emergency room and found to have a displaced fracture of the subtrochanteric area of the right femur. She only complains of pain in that localized area. Has not been complaining of pain otherwise. However, MR scanning does show also severe stenosis. She denies any back pain or bowel or bladder difficulties otherwise. Dr. Wong admitted her to [facility] on 01/13/2019. She otherwise has a very supportive family and at this point, there is no local oncology care to help us with the discussion with prognosis. I have discussed this only with the hospitalist and as well as with the supportive family members. PAST MEDICAL HISTORY: She has a past medical history of atrial fibrillation, which was diagnosed when she was admitted recently as well as non-insulin dependent diabetes mellitus, hypertension, obesity, spinal stenosis, history of coronary artery disease. PAST SURGICAL HISTORY: She has had a right total knee arthroplasty in the past. MEDICATIONS AT HOME INCLUDE: - atenolol - dexamethasone - Cardizem - Colace - gabapentin - Lantus insulin - pravastatin - Protonix - Eliquis ALLERGIES: SULFA MEDICATIONS. MEDICATIONS: She is . Lives in [place]. Does not smoke or drink alcohol excessively. Discharge summary from [facility] has been reviewed. Dr. Wong's history and physical from 01/13/2019 has been reviewed for the rest of the history of present illness as well as social history and family history. PHYSICAL EXAMINATION: On exam, she is an obese pleasant female lying on the stretcher. She is quite alert and oriented. Blood pressure 118/84, pulse 102, respirations 18, oxygen saturations 94%. HEENT: Exam was relatively benign. Normocephalic, atraumatic. Extraocular muscles grossly normal. Oropharynx is benign. Chest was nontender to palpation. Abdomen was quite obese but nontender. Upper extremities: She could elevate up overhead. There is no obvious deformity, crepitance, pain or soreness or tenderness involving her upper extremities. However, on the bed, your could tell her right leg markedly shortened and fully externally rotated with the knee flexed. She has a healed scar over the knee from a knee replacement surgery done by Dr. Burgess in the distant past. She has pain in the thigh. Some moderate swelling noted. Distally, she can move her toes and dorsiflex and plantar flexion quite strongly, and she has a well perfused foot with the dorsalis pedis pulse left leg and she could elevate up off the bed without pain or soreness and was also neurologically intact. Radiographs of the right femur show a pathologically placed fracture with a permeative lesion in the subtrochanteric area. Chest x-ray showed no acute findings. KUB showed some lucency in the posterior elements of L5. Lumbar spine MRI scan showed a severe stenosis of L4-5 with metastatic lesions at L1 and L5 noted. That was done on 01/01/2019. Lumbar spine x-rays taken 01/01/2019 showed may be a possible superior endplate fracture of L3 on the lateral view versus an old osteophyte. She had a knee x-ray dated November 13, 2009 shows a right total knee arthroplasty postoperative images. LABORATORY STUDIES: White count 6, hematocrit 32.4, platelets 156. Sodium 141, potassium 4.5, chloride 105, bicarbonate 27, BUN 20, creatinine 0.48, glucose 121, PT 18.1, INR 1.53. IMPRESSION: This is an unfortunate 73-year-old female with a now displaced pathologic fracture of the subtrochanteric area with uncertain prognosis. I discussed at length with the family that it may be best for her, in terms of comfort, as well as for transfers and bowel and bladder care to have her femur stabilized surgically for comfort measures and the treat it with radiation as has already been initiated. The other alternative, of course, is nonoperative management but at this juncture, she seems alert and pretty fairly spry and her life expectancy is probably still quite prolonged at this point, so it may be best to get her comfortable. After some discussion back and forth about whether or not it is worth going through the risk of surgery, including the risk of infection, damage to nerves, blood vessels, anesthetic complications, phlebitis, embolism, heart attack, , amongst others, and after some discussion with patient as well as the hospitalist, she would like to get comfortable and understands the risks and the reason for considering intramedullary (IM) nail fixation. Once she is medically optimized, we plan to proceed. She signed a consent today. I told her that it may be myself or likely my partner who is covering for the weekend, will be performing the operative intervention. They understand that.
[2019-02-11] MEDS: DOCUSATE SODIUM 100 MG CAP PO SCH ×2 (08:18→20:38)
[2019-02-11] MEDS: PANTOPRAZOLE 40MG TAB (PROTONIX) PO SCH ×2 (08:18→20:38)
[2019-02-11] MEDS: PRAVASTATIN 20 MG TAB PO SCH (08:18)
[2019-02-11] MEDS: ACETAMINOPHEN 500 MG TAB PO SCH (08:20)
[2019-02-11] MEDS: atenoloL 50 MG TAB PO SCH (08:21)
[2019-02-11] MEDS: LIDOCAINE 5% (LIDODERM) PATCH TD SCH (08:22)
[2019-02-11] MEDS ORDERED: ENOXAPARIN 40 MG/0.4 ML SYRINGE (J1650) SC SCH (09:00)
[2019-02-11] MEDS ORDERED: diltiaZEM **CD** 180 MG CAP PO SCH (09:00)
[2019-02-11] MEDS ORDERED: ENOXAPARIN 40 MG/0.4 ML SYRINGE (J1650) SC ONE (12:00)
[2019-02-11] MEDS: GABAPENTIN 300 MG CAP PO SCH ×2 (15:43→20:37)
--- NOTE | 2019-02-11 18:09 | IPNPDOC ---
Text Note Date of Service The patient was seen on 02/11/19. NOTE Pt was seen andexamined at bedside, pt refers that pain control is adequate. She is not in any distress. No dyspnea. No tachypnea. Family at bedside. She is NPO aftermidnight for procedure. No anticoagulation in the morning of procedure. Resume 12-24 post procedure. PHYSICAL EXAMINATION: VITAL SIGNS: please see below GENERAL APPEARANCE: AAOx3 NAD HEENT: ZAINA EOMI pale neck supple no icterus CARDIOVASCULAR: S1 S2 RRR LUNGS: clear bilat no wheezing no rales ABDOMEN: soft distended possible ascites MUSCULOSKELETAL: no deformity EXTREMITIES: markedly external rotation of RT Lower extremity NEUROLOGICAL: motor sensory grossly intact PSYCHIATRIC: mood affect appropriate Vital Signs Date Time Temp Pulse Resp B/P (MAP) Pulse Ox O2 Delivery O2 Flow Rate FiO2 02/11/19 16:00 99.8 117 21 94 02/11/19 15:44 18 02/11/19 12:00 99.1 96 18 142/74 (96) 96 02/11/19 08:21 134 119/78 02/11/19 08:19 134 119/78 02/11/19 08:00 97.8 134 18 119/78 (92) 94 02/11/19 04:00 98.6 125 20 109/70 (83) 93 02/11/19 03:18 20 02/11/19 03:08 20 02/11/19 02:40 98.9 118 18 125/75 (92) 92 02/11/19 02:15 97.6 122 20 136/80 (98) 96 02/11/19 02:00 126 02/11/19 01:45 141 02/11/19 01:30 133 02/11/19 01:16 138/76 (96) 02/11/19 01:15 132 02/11/19 01:00 117 20 111/66 (81) 93 Room Air 02/11/19 00:46 125 20 104/57 (73) 93 Room Air 02/11/19 00:30 121 20 119/78 (92) 93 Room Air 02/11/19 00:22 20 118/71 (87) 93 Room Air 02/11/19 00:15 124 02/11/19 00:00 122 02/10/19 23:45 125 95 Room Air 02/10/19 23:30 129 02/10/19 23:15 134 89/54 (66) 02/10/19 23:00 128 113/62 (79) 95 Room Air 02/10/19 22:45 128 123/69 (87) 93 Room Air 02/10/19 22:30 127 123/70 (87) 92 Room Air 02/10/19 22:15 132 112/82 (92) 90 Room Air 02/10/19 22:00 132 111/62 (78) 96 02/10/19 21:56 125/77 (93) 02/10/19 21:45 137 96 02/10/19 21:30 132 02/10/19 21:15 138 02/10/19 21:00 134 02/10/19 20:45 134 02/10/19 19:45 124 19 127/95 (106) 98 02/10/19 19:30 118 19 128/86 (100) 96 02/10/19 19:00 116 19 126/86 (99) 96 02/10/19 18:45 118 18 143/96 (112) 96 02/10/19 18:15 113 120/80 (93) 95 Intake & Output 02/11/19 06:00 Intake Total 1000 ml Output Total 900 ml Balance 100 ml Laboratory Tests 02/10/19 21:43: Bedside Glucose (Misc Panel) 173H 02/11/19 05:12: White Blood Count 6.3, Red Blood Count 3.43L, Hemoglobin 9.5L, Hematocrit 31.0L, Mean Corpuscular Volume 90.4, Mean Corpuscular Hemoglobin 27.7, Mean Corpuscular Hemoglobin Concent 30.6L, Red Cell Distribution Width 19.2H, Platelet Count 157, Neutrophils (%) (Auto) 65.8, Lymphocytes (%) (Auto) 18.6L, Monocytes (%) (Auto) 14.2H, Eosinophils (%) (Auto) 0.3, Basophils (%) (Auto) 0.3, Neutrophils # (Auto) 4.2, Lymphocytes # (Auto) 1.2L, Monocytes # (Auto) 0.9H, Eosinophils # (Auto) 0.0, Basophils # (Auto) 0.0, Immature Granulocyte % (Auto) 0.8, Nucleated Red Blood Cells % (auto) 0.0, Prothrombin Time 17.5H, Prothromb Time International Ratio 1.46, Blood Urea Nitrogen 19H, Creatinine 0.53L, Sodium Level 137, Potassium Level 3.9, Chloride Level 104, Carbon Dioxide Level 26, Calcium Level 9.1, Aspartate Amino Transf (AST/SGOT) 18, Alanine Aminotransferase (ALT/SGPT) 13, Alkaline Phosphatase 80, Total Bilirubin 0.8, Total Protein 5.7L, Albumin 1.9L, Anion Gap 7L, Glomerular Filtration Rate > 60.0, Fasting Glucose 165H, Albumin/Globulin Ratio 0.50L 02/11/19 08:14: Bedside Glucose (Misc Panel) 161H 02/11/19 13:06: Bedside Glucose (Misc Panel) 154H 02/11/19 17:59: Bedside Glucose (Misc Panel) 207H Current Medications Medications (Trade) Dose Ordered Sig/Leslie Route PRN Reason Start Time Stop Time Status Last Admin Dose Admin Acetaminophen (Tylenol Tab) 1,000 mg DAILY PO 02/11/19 09:00 02/11/19 08:20 1,000 MG Amitriptyline HCl (Elavil) 25 mg QHS PO 02/10/19 21:00 02/10/19 21:35 25 MG Atenolol (Tenormin) 100 mg DAILY PO 02/11/19 09:00 02/11/19 08:21 100 MG Diltiazem HCl (Cardizem Cd) 180 mg DAILY PO 02/11/19 09:00 02/11/19 08:19 180 MG Docusate Sodium (Colace) 100 mg BID PO 02/10/19 21:00 02/11/19 08:18 100 MG Gabapentin (Neurontin) 300 mg TID PO 02/10/19 16:00 02/11/19 15:43 300 MG Insulin Human Lispro (HumaLOG INSULIN) SEE PROTOCOL TABLE AC SC 02/11/19 07:30 02/11/19 13:15 4 UNITS Morphine Sulfate (Morphine Sulfate Inj) 4 mg Q4HP PRN IV PAIN 02/10/19 15:00 02/11/19 15:44 4 MG Non-Formulary Medication ( See Comment Field Below ) REMOVE LIDODERM PATCH DAILY@21 XX 02/10/19 21:00 02/10/19 21:00 1 Pantoprazole Sodium (Protonix) 40 mg BID PO 02/10/19 21:00 02/11/19 08:18 40 MG Pravastatin Sodium (Pravachol) 20 mg DAILY PO 02/11/19 09:00 02/11/19 08:18 20 MG Senna (Senokot) 2 tab QHS PO 02/10/19 21:00 02/10/19 21:34 2 TAB A/P 1-Acute pathologic intertrochanteric fracture of right femur 2-Recently diagnosed adrenal cortical carcinoma with mets to bone 3-Atrial fibrillation with RVR 4-Uncontrolled T2DM 5-s/p one session radiation therapy to Rt leg Ortho consult appreciated Possible OR in AM NPO Hold anticoagulation resume anticoagulation within 12-24 hours for DVT prophylaxis Medical clearance: Pt is currently medically optimized with intermediate to high risk of perioperative cardiopulmonary complications Pain control monitor CBC for acute blood loss in view of pt on Eliquis prior to fracture FS AC HS Insulin SS for Afib with RVR rate noted to be high despite cardizem 180mg, will increase dose. DVT prophylaxis: resume after operation. PT/OT SW/CM VS,Fishbone, I+O VS, Fishbone, I+O Laboratory Tests 02/11/19 05:12 Red Blood Count 3.43 L, Mean Corpuscular Volume 90.4, Mean Corpuscular Hemoglobin 27.7, Mean Corpuscular Hemoglobin Concent 30.6 L, Red Cell D istribution Width 19.2 H, Neutrophils (%) (Auto) 65.8, Lymphocytes (%) (Auto) 18.6 L, Monocytes (%) (Auto) 14.2 H, Eosinophils (%) (Auto) 0.3, Basophils (%) (Auto) 0.3, Neutrophils # (Auto) 4.2, Lymphocytes # (Auto) 1.2 L, Monocytes # (Auto) 0.9 H, Eosinophils # (Auto) 0.0, Basophils # (Auto) 0.0, Calcium Level 9.1, Aspartate Amino Transf (AST/SGOT) 18, Alanine Aminotransferase (ALT/SGPT) 13, Alkaline Phosphatase 80, Total Bilirubin 0.8, Total Protein 5.7 L, Albumin 1.9 L Vital Signs Date Time Temp Pulse Resp B/P (MAP) Pulse Ox O2 Delivery O2 Flow Rate FiO2 02/11/19 16:00 99.8 117 21 94 02/11/19 12:00 142/74 (96) 02/11/19 01:00 Room Air I&O- Last 24 Hours up to 6 AM 02/11/19 06:00 Intake Total 1000 ml Output Total 900 ml Balance 100 ml DORCAS POLANCO MD Feb 11, 2019 18:09
[2019-02-11] MEDS: AMITRIPTYLINE 25 MG TAB PO SCH (20:37)
[2019-02-11] MEDS: SENNA 8.6 MG TAB (SENOKOT) PO SCH (20:38)
[2019-02-11] MEDS: **NOTE PATIENT COMMENT** MISC XX SCH (22:00)
[2019-02-12] VITALS (10 sets, daily range): BP systolic 85–150; BP diastolic 55–86
[2019-02-12 05:38] LABS: BASO % 0.4 % (0.0-1.0); EOS # 0.1 10^3/uL (0.0-0.50); EOS % 0.9 % (0.0-3.0); HEMATOCRIT 32.1 % (36.0-47.0); HEMOGLOBIN 9.8 g/dl (12.0-15.5); LYMPH # 1.1 10^3/uL (1.5-4.5); LYMPH % 18.6 % (24.0-44.0); MEAN CORPUSCULAR HEMOGLOBIN 27.7 pg (27.0-33.0); MEAN CORPUSCULAR HGB CONC 30.5 g/dl (32.0-36.5); MEAN CORPUSCULAR VOLUME 90.7 fl (80.0-96.0); MONO # 0.8 10^3/uL (0.0-0.8); MONO % 13.6 % (0.0-5.0); NEUTROPHILS # 3.7 10^3/uL (1.8-7.7); NEUTROPHILS % 65.6 % (36.0-66.0); PLATELET COUNT, AUTOMATED 140 10^3/uL (150-450); RED BLOOD COUNT 3.54 10^6/uL (4.00-5.40); WHITE BLOOD COUNT 5.7 10^3/uL (4.0-10.0)
[2019-02-12 05:48] LABS: INR 1.33; PROTHROMBIN TIME 16.2 SECONDS (11.8-14.0)
[2019-02-12] MEDS ORDERED: ceFAZolin SOD 2 GM in IV 1 EA IV ONE (06:00)
[2019-02-12 06:02] LABS: ALBUMIN 1.9 GM/DL (3.2-5.2); ALT/SGPT 14 U/L (12-78); BILIRUBIN,TOTAL 0.8 MG/DL (0.2-1.0); BLOOD UREA NITROGEN 22 MG/DL (7-18); CALCIUM LEVEL 9.5 MG/DL (8.8-10.2); CARBON DIOXIDE LEVEL 27 MEQ/L (21-32); CHLORIDE LEVEL 102 MEQ/L (98-107); CREATININE FOR GFR 0.58 MG/DL (0.55-1.30); GLOMERULAR FILTRATION RATE > 60.0 (>39); GLUCOSE, FASTING 188 MG/DL (70-100); POTASSIUM SERUM 3.9 MEQ/L (3.5-5.1); SODIUM LEVEL 137 MEQ/L (136-145); TOTAL PROTEIN 6.2 GM/DL (6.4-8.2)
[2019-02-12] MEDS: HumaLOG INSULIN (NovoLOG) PER UNIT SC SCH ×4 (07:30→21:00)
[2019-02-12] MEDS: atenoloL 50 MG TAB PO SCH (07:43)
[2019-02-12] MEDS: MORPHINE 4 MG/ML 1ML VIAL/SYRINGE (J2270) IV PRN ×2 (08:39→17:36)
[2019-02-12] MEDS: GABAPENTIN 300 MG CAP PO SCH ×3 (09:00→23:40)
[2019-02-12] MEDS: LIDOCAINE 5% (LIDODERM) PATCH TD SCH (09:00)
[2019-02-12] MEDS ORDERED: LIDOCAINE 2% INJ 100 MG/5 ML SDV (FOR ANES.) As Ordered ONE (10:34)
[2019-02-12] MEDS ORDERED: propofoL 200 MG/20 ML VIAL As Ordered ONE (10:34)
[2019-02-12] MEDS ORDERED: ROCURONIUM BROMIDE 50 MG/5 ML VIAL As Ordered ONE (10:35)
[2019-02-12] MEDS ORDERED: ONDANSETRON 4MG/2ML VIAL (J2405) As Ordered ONE (10:35)
[2019-02-12] MEDS ORDERED: dexameTHASONE 4 MG/ML 1ML VIAL (J1100) As Ordered ONE (10:35)
[2019-02-12] MEDS ORDERED: MIDAZOLAM INJ 2 MG/2 ML VIAL (J2250) As Ordered ONE (10:36)
[2019-02-12] MEDS ORDERED: fentaNYL 100 MCG/2 ML INJECTION (J3010) As Ordered ONE ×2 (10:36→13:16)
[2019-02-12] MEDS ORDERED: ceFAZolin 2 GM/D5W 50 ML IV BAG (J0690 PER 500MG) As Ordered ONE (10:44)
--- NOTE | 2019-02-12 11:00 | IPNPDOC ---
Subjective Date Seen The patient was seen on 02/12/19. Subjective Chief Complaint/HPI Patient seen and examined at the bedside. She is scheduled to go to the OR with orthopedic surgery today. States that her pain is well controlled at this time. Denies any other acute complaints. Objective Physical Examination General Exam: Positive: Alert, Cooperative, No Acute Distress ENT Exam: Positive: Atraumatic, Mucous membr. moist/pink Neck Exam: Negative: JVD Chest Exam: Positive: Clear to auscultation, Normal air movement Heart Exam: Positive: Rate Normal, Normal S1, Normal S2 Abdomen Exam: Positive: Soft; Negative: Tenderness Extremity Exam: Positive: Other (right hip joint with limited range of motion secondary to fracture.) Psych Exam: Positive: Oriented x 3 Assessment /Plan Plan/VTE VTE Prophylaxis Ordered?: Yes Plan Acute pathologic intertrochanteric fracture of right femur Recently diagnosed adrenal cortical carcinoma with mets to bone s/p one session radiation therapy to Rt leg Atrial fibrillation with RVR T2DM Orthopedic surgery on board to take the patient to the OR today HR better controlled on Cardizem, Atenolol today DVT prophylaxis: resume after operation as per Orthopedic Surgery VS, I&O, 24H, Fishbone Vital Signs/I&O Vital Signs Date Time Temp Pulse Resp B/P (MAP) Pulse Ox O2 Delivery O2 Flow Rate FiO2 02/12/19 08:39 17 02/12/19 08:00 98.6 91 134/77 (96) 99 02/11/19 01:00 Room Air I&O- Last 24 Hours up to 6 AM 02/12/19 06:00 Intake Total 240 ml Output Total 500 ml Balance -260 ml Laboratory Data 24H LABS Laboratory Tests 2 02/11/19 13:06: Bedside Glucose (Misc Panel) 154H 02/11/19 17:59: Bedside Glucose (Misc Panel) 207H 02/11/19 20:35: Bedside Glucose (Misc Panel) 224H 02/12/19 05:07: Immature Granulocyte % (Auto) 0.9, White Blood Count 5.7, Red Blood Count 3.54L, Hemoglobin 9.8L, Hematocrit 32.1L, Mean Corpuscular Volume 90.7, Mean Corpuscular Hemoglobin 27.7, Mean Corpuscular Hemoglobin Concent 30.5L, Red Cell Distribution Width 18.9H, Platelet Count 140L, Neutrophils (%) (Auto) 65.6, Lymphocytes (%) (Auto) 18.6L, Monocytes (%) (Auto) 13.6H, Eosinophils (%) (Auto) 0.9, Basophils (%) (Auto) 0.4, Neutrophils # (Auto) 3.7, Lymphocytes # (Auto) 1.1L, Monocytes # (Auto) 0.8, Eosinophils # (Auto) 0.1, Basophils # (Auto) 0.0, Nucleated Red Blood Cells % (auto) 0.0, Prothrombin Time 16.2H, Prothromb Time International Ratio 1.33, Anion Gap 8, Glomerular Filtration Rate > 60.0, Blood Urea Nitrogen 22H, Creatinine 0.58, Sodium Level 137, Potassium Level 3.9, Chloride Level 102, Carbon Dioxide Level 27, Calcium Level 9.5, Aspartate Amino Transf (AST/SGOT) 17, Alanine Aminotransferase (ALT/SGPT) 14, Alkaline Phosphatase 92, Total Bilirubin 0.8, Total Protein 6.2L, Albumin 1.9L, Albumin/Globulin Ratio 0.44L CBC/BMP Laboratory Tests 02/12/19 05:07 Red Blood Count 3.54 L, Mean Corpuscular Volume 90.7, Mean Corpuscular Hemoglobin 27.7, Mean Corpuscular Hemoglobin Concent 30.5 L, Red Cell Distribution Width 18.9 H, Neutrophils (%) (Auto) 65.6, Lymphocytes (%) (Auto) 18.6 L, Monocytes (%) (Auto) 13.6 H, Eosinophils (%) (Auto) 0.9, Basophils (%) (Auto) 0.4, Neutrophils # (Auto) 3.7, Lymphocytes # (Auto) 1.1 L, Monocytes # (Auto) 0.8, Eosinophils # (Auto) 0.1, Basophils # (Auto) 0.0, Calcium Level 9.5, Aspartate Amino Transf (AST/SGOT) 17, Alanine Aminotransferase (ALT/SGPT) 14, Alkaline Phosphatase 92, Total Bilirubin 0.8, Total Protein 6.2 L, Albumin 1.9 L LICO SWEENEY MD Feb 12, 2019 11:00
[2019-02-12] MEDS ORDERED: ACETAMINOPHEN 1000MG 100ML IV BTL (OFIRMEV) (J0131 PER 10MG) As Ordered ONE (12:37)
[2019-02-12] MEDS ORDERED: SUGAMMADEX SODIUM 500 MG/5 ML VIAL (BRIDION) As Ordered ONE (12:39)
[2019-02-12] MEDS ORDERED: METOCLOPRAMIDE INJ 10MG/2ML VIAL (J2765) IV PRN (13:30)
[2019-02-12] MEDS ORDERED: ONDANSETRON 4MG/2ML VIAL (J2405) IV PRN (13:30)
[2019-02-12] MEDS ORDERED: fentaNYL 100 MCG/2 ML INJECTION (J3010) IV PRN (13:30)
[2019-02-12] MEDS ORDERED: LR 1,000 ML IV SCH (13:30)
[2019-02-12] MEDS: PRAVASTATIN 20 MG TAB PO SCH (14:56)
[2019-02-12] MEDS: DOCUSATE SODIUM 100 MG CAP PO SCH ×2 (14:57→23:41)
[2019-02-12] MEDS: ACETAMINOPHEN 500 MG TAB PO SCH (14:57)
[2019-02-12] MEDS: PANTOPRAZOLE 40MG TAB (PROTONIX) PO SCH ×2 (14:57→23:40)
[2019-02-12] MEDS: **NOTE PATIENT COMMENT** MISC XX SCH (21:00)
[2019-02-12] MEDS: SENNA 8.6 MG TAB (SENOKOT) PO SCH (23:41)
[2019-02-12] MEDS: AMITRIPTYLINE 25 MG TAB PO SCH (23:41)
[2019-02-13 01:45] VITALS: BP 109/70
[2019-02-13 05:56] VITALS: BP 113/71
[2019-02-13] MEDS ORDERED: ceFAZolin SOD 2 GM in IV 1 EA IV SCH (06:00)
[2019-02-13] MEDS ORDERED: ONDANSETRON 4 MG TAB (S0181) PO PRN (06:00)
[2019-02-13] MEDS ORDERED: PERCOCET 5MG/325MG TAB PO PRN ×2 (06:00)
[2019-02-13] MEDS ORDERED: MAGNESIUM CITRATE 300 ML BTL PO ONE (08:30)
[2019-02-13 09:00] VITALS: BP 84/68
[2019-02-13] MEDS ORDERED: MIRALAX *UNIT DOSE* 17GM PACKET PO SCH (09:00)
[2019-02-13] MEDS ORDERED: APIXABAN 5 MG TAB (ELIQUIS) PO SCH (09:00)
[2019-02-13] MEDS ORDERED: SENNA 8.6 MG TAB (SENOKOT) PO SCH (09:00)
[2019-02-13] MEDS: atenoloL 50 MG TAB PO SCH (09:00)
[2019-02-13] MEDS ORDERED: MOM 30ML SUSPENSION UDC PO SCH (09:00)
[2019-02-13] MEDS: LIDOCAINE 5% (LIDODERM) PATCH TD SCH (09:12)
[2019-02-13] MEDS: GABAPENTIN 300 MG CAP PO SCH (09:12)
[2019-02-13] MEDS: DOCUSATE SODIUM 100 MG CAP PO SCH (09:12)
[2019-02-13] MEDS: PRAVASTATIN 20 MG TAB PO SCH (09:12)
[2019-02-13] MEDS: PANTOPRAZOLE 40MG TAB (PROTONIX) PO SCH (09:13)
[2019-02-13] MEDS: ACETAMINOPHEN 500 MG TAB PO SCH (09:16)
[2019-02-13] MEDS: HumaLOG INSULIN (NovoLOG) PER UNIT SC SCH (09:17)
--- NOTE | 2019-02-13 09:45 | REP ---
RIGHT FEMUR, AP AND LATERAL: AP and lateral views of right femur performed. There is an intramedullary andrea present fixed by an anchor proximally and two metallic screws distally. Intertrochanteric fracture is well aligned. Metallic skin palma are seen laterally. Electronically Signed by David Yadav MD 02/14/2019 01:19 P
--- NOTE | 2019-02-13 09:53 | REP ---
C-ARM VIEWS RIGHT FEMUR: Multiple C-arm views right femur are performed. There is placement of an intramedullary andrea fixed by an anchor proximally and two metallic screws distally. 219 second fluoroscopy time utilized. Osseous structures are well aligned. Electronically Signed by David Yadav MD 02/14/2019 01:25 P
--- NOTE | 2019-02-13 13:00 | DS.PDOC ---
Discharge Summary General Date of Admission Feb 10, 2019 at 17:35 Date of Discharge February 13, 2019 Primary Care Physician: Jr Wong Collins Attending Physician: JUNE CH MD Specialist/Consultants Involve: TEJAL SANTOS Discharge Summary PROCEDURES PERFORMED DURING STAY: [None]. ADMITTING DIAGNOSES: 1-Acute pathologic intertrochanteric fracture of right femur 2-Recently diagnosed adrenal cortical carcinoma with mets to bone 3-Atrial fibrillation with RVR DISCHARGE DIAGNOSES: 1. s/p Surgical repair of Acute pathologic intertrochanteric fracture of right femur]. COMPLICATIONS/CHIEF COMPLAINT: Pathologic Fx Of Femur. HISTORY OF PRESENT ILLNESS: is a 73 y/o F who was broughtot the ED from [facility] for managemeng of a right proximal femure fracture. HOSPITAL COURSE: She was admitted on the and had surgical repair of the the femur. She was examined on February 13 at 742 and was noted to be alert and c/o of a bit of pain. DISCHARGE MEDICATIONS: Please see below. ALLERGIES: Please see below. PHYSICAL EXAMINATION ON DISCHARGE: VITAL SIGNS: Please see below. GENERAL: [NAD] HEENT: [EOMI] NECK: [supple] CARDIOVASCULAR EXAMINATION: [RRR/NMRG] RESPIRATORY EXAMINATION: [CTAB on RA] EXTREMITIES: [right leg swollen, ROM limited by pain] SKIN: [old post surgical scar noted at anterior right lower leg and knee ] PSYCHIATRIC EXAMINATION: [alert and oriented to person not place or time] LABORATORY DATA: Please see below. IMAGING: "RIGHT FEMUR, AP AND LATERAL: AP and lateral views of right femur performed. There is an intramedullary andrea present fixed by an anchor proximally and two metallic screws distally. Intertrochanteric fracture is well aligned. Metallic skin palma are seen laterally." PROGNOSIS: fair ACTIVITY: As tolerated DIET: low fat and low cholesterol diet DISCHARGE PLAN: [f/u w PCP for work up for pathological fracture including Dexa scan, TSH, urine Ca ect.] DISPOSITION: [facility]. DISCHARGE INSTRUCTIONS: 1. pain regimen per Ortho ITEMS TO FOLLOWUP ON ON OUTPATIENT: 1. f/u with Ortho, PT and OT DISCHARGE CONDITION: Stable TIME SPENT ON DISCHARGE: Greater than 10 minutes. Vital Signs/I&Os Vital Signs Date Time Temp Pulse Resp B/P (MAP) Pulse Ox O2 Delivery O2 Flow Rate FiO2 02/13/19 09:00 88 84/98 02/13/19 05:56 97.8 18 98 2.0 02/11/19 01:00 Room Air I&O- Last 24 Hours up to 6 AM 02/13/19 06:00 Intake Total 1100 ml Output Total 700 ml Balance 400 ml Laboratory Data Labs 24H Laboratory Tests 2 02/12/19 14:56: Bedside Glucose (Misc Panel) 224H 02/12/19 17:58: Bedside Glucose (Misc Panel) 192H 02/13/19 00:32: Bedside Glucose (Misc Panel) 226H 02/13/19 06:04: Bedside Glucose (Misc Panel) 243H FSBS Laboratory Tests Test 02/12/19 14:56 02/12/19 17:58 02/13/19 00:32 02/13/19 06:04 Range/Units Bedside Glucose (Misc Panel) 224 192 226 243 83-110 MG/DL Discharge Medications Scheduled Acetaminophen (Acetaminophen) 500 Mg Tablet, 1,000 MG PO DAILY, (Reported) AT 0800 Amitriptyline HCl (Amitriptyline HCl) 25 Mg Tablet, 25 MG PO QHS, (Reported) Apixaban (Eliquis) 5 Mg Tablet, 5 MG PO BID, (Reported) Atenolol (Atenolol) 100 Mg Tablet, 100 MG PO DAILY, (Reported) Diltiazem Hcl (Cardizem Cd) 180 Mg Cap.er.24h, 180 MG PO DAILY, (Reported) Docusate Sodium (Colace) 100 Mg Capsule, 100 MG PO BID, (Reported) Gabapentin (Gabapentin) 300 Mg Capsule, 300 MG PO TID, (Reported) Insulin Glargine,Hum.rec.anlog (Basaglar Kwikpen U-100) 100 Unit/1 Ml Insuln.pen, 46 UNIT SC DAILY, (Reported) Insulin Human Lispro (Humalog) 100 Unit/1 Ml Vial, 8 UNITS SC DAILY, (Reported) AT 0800 Insulin Human Lispro (Humalog) 100 Unit/1 Ml Vial, 10 UNITS SC BID, (Reported) BEFORE MEALS AT 1200 AND 1700 Lidocaine (Lidoderm) 5% Adh..patch, 1 PATCH TD DAILY, (Reported) APPLIES TO BACK Multivitamin (Multivitamins) 1 Each Capsule, 1 CAP PO DAILY, (Reported) Pantoprazole Sodium (Pantoprazole Sodium) 40 Mg Tablet.dr, 40 MG PO BID, (Reported) Polyethylene Glycol 3350 (Miralax) 119 Gm Powder, 17 GM PO BID, (Reported) Pravastatin Sodium (Pravastatin Sodium) 20 Mg Tablet, 20 MG PO DAILY, (Reported) Sennosides (Senna) 8.6 Mg Tablet, 17.2 MG PO QHS, (Reported) Scheduled PRN Bisacodyl (Bisacodyl) 10 Mg Supp.rect, 10 MG [place] DAILY PRN for CONSTIPATION, (Reported) Glucagon,Human Recombinant (Glucagon Emergency Kit) 1 Mg Vial, 1 MG IM ASDIRECTED PRN for HYPOGLYCEMIA, (Reported) Magnesium Hydroxide (Milk of Magnesia) 400 Mg/5 Ml Oral.susp, 10 ML PO DAILY PRN for CONSTIPATION, (Reported) Sodium Phosphate,[place]-Dibasic (Enema Ready To Use) 133 Ml Enema, 1 DANELLE [place] DAILY PRN for CONSTIPATION, (Reported) Allergies Coded Allergies: Sulfa (Sulfonamide Antibiotics) (Verified Allergy, Unknown, "puts me to sleep", 01/01/19) JUNE CH MD Feb 13, 2019 13:00
--- NOTE | 2019-02-13 23:30 | RO ---
DATE OF PROCEDURE: 02/12/2019 PREPROCEDURE DIAGNOSIS: Right hip pathologic subtrochanteric femur fracture. POSTPROCEDURE DIAGNOSIS: Right hip pathologic subtrochanteric femur fracture. PROCEDURE PERFORMED: Right femur closed reduction and cephalomedullary nailing. SURGEON: Dr. Tim Caban [employer] WORKER: FRANCISCO Mathis ANESTHESIA: General. ESTIMATED BLOOD LOSS: 100 mL. IMPLANTS: Synthes long trochanteric fixation nail. SPECIMENS: I did send the reamings to pathology for evaluation. No blood administered. No complications. DESCRIPTION OF PROCEDURE: The patient was identified in the preoperative holding area by name, medical record number and date of . The surgical site was marked in consultation with the patient, and she was evaluated by anesthesia. When she was ready, she was brought back to operative suite on a gurney, transferred to the operating room (OR) table. At this point, general anesthesia was induced, and she was then placed on the fracture table, appropriately padding all bony prominences. Secured the well leg and placed the right leg in traction, pulling axial traction with a gentle internal rotation and adduction confirmed a good satisfactory provisional reduction using fluoroscopic views. Next, the right lower extremity was sterilely prepped and draped in the usual fashion. Prior to beginning the procedure, a final time-out was performed and all of them agreed. She was given IV antibiotics prior to incision. We began the procedure by establishing a standard incision proximal to the tip of the greater trochanter, dissecting down through the skin and subcutaneous fat. She did have abundant soft tissue in this area making access difficult. I did get the guidewire at the start point, inserting that and confirming good position with AP and lateral fluoroscopy. I next inserted the entry reamer and followed this up with the ball-tip guidewire, which I was able to pass across the fracture site by closed reducing the distal shaft fragment, and I next appropriately sized for the nail, having the tip of the nail end just roughly at the level of the total knee prosthesis. Next, sequentially reamed up to 12.5 mm for the trochanteric fixation nail, and I did send the reamings in formalin as a pathologic specimen given the pathologic nature of this fracture. Next, inserted the trochanteric fixation nail and inserted the guidewire for the helical blade confirming satisfactory position on AP and lateral fluoroscopy and next appropriately sized, over reamed and inserted the helical blade with satisfactory fixation. Next, used a perfect venetie technique to lock distally using two locking screws and fluoroscopic views at this time confirmed satisfactory reduction, internal fixation and placement of all hardware. The wounds were next copiously irrigated and closed. Sterile dressings were applied. The patient was brought out of anesthesia and transferred to Post Anesthesia Care Unit in stable condition. In the Post Anesthesia Care Unit, she did have, in fact, 2+ dorsalis pedis and posterior tibialis pulse with sensation intact to light touch throughout her foot and alignment was normal. X-rays in the Post Anesthesia Care Unit confirmed satisfactory reduction and internal fixation.
== END 2019-02-13 10:50 | DRG 481 ==
LOC: M ED 11:02 → M ED INP 17:35 → M PCU 02-11 02:43 → M MS5PR 02-12 16:56
PROVIDERS: ADMIT Hospitalist; ATTEND Internal Medicine
PROC: 0QS634Z Reposition Right Upper Femur with Internal Fixation Device, Percutaneous Approach (ICD-10-PCS; principal; 2019-02-12 08:30)
DX: M84.451A Pathological fracture, right femur, initial encounter for fracture (principal); C74.00 Malignant neoplasm of cortex of unspecified adrenal gland; C79.51 Secondary malignant neoplasm of bone; I48.91 Unspecified atrial fibrillation; Z79.899 Other long term (current) drug therapy; Z88.2 Allergy status to sulfonamides; Z79.01 Long term (current) use of anticoagulants; E11.9 Type 2 diabetes mellitus without complications; I10 Essential (primary) hypertension

== ENCOUNTER → 2019-02-10 | Outpatient (REF) ==
[~2019-02-10] MED LIST changes: +ACET-683 PO; +ACET1TAB55 PO; +AMIT25TA PO; +ATEN100T PO; +BASA100I SC; +BENA40TA7 PO; +BISA10SU27 PR; +CARD180C4 PO; +COLA100C5 PO; +ELIQ5TAB PO; +ENEMENE22 PR; +GABA-843 PO; +GLIP10TA18 PO; +GLUC1KIT IM; +INSUHUMDS SC; +LIDO5DIS41 TD; +METF850T4 PO; +MILKSUS3 PO; +MIRA3350 PO; +MULTCAP PO; +OMEP20CA4 PO; +PANT40TA3 PO; +PRAV20TA2 PO; +SENN8.6T58 PO
--- NOTE | 2019-02-10 10:34 | REP ---
Right hip: Two views. History: Pain. Findings: AP view of the right hip and cross-table lateral views are presented. The cross-table lateral view is less than optimal due to overlap with the contralateral hip. There is evidence of a pathologic fracture in the subtrochanteric femur on the right with a lytic area of a permeative destruction and a transverse fracture. There is apex lateral angulation, slight impaction, and mild lateral displacement. There is diffuse osteopenia. Degenerative changes are seen at the hip with subcortical cyst formation in the acetabular margin. No other bony destructive lesion is seen. Impression: Pathologic fracture subtrochanteric femur associated with a destructive lytic lesion. Electronically Signed by Laurent Land MD 02/10/2019 11:18 A
--- NOTE | 2019-02-10 10:47 | REP ---
KUB: Two views. History: Abdomen pain. Findings: There is a pathologic fracture seen at the edge of the field of view in the right proximal femur with a lytic lesion. There is ill defined radiolucency in the posterior elements at the lumbosacral junction. There is moderate stool in the ascending colon. Air and stool is seen in the descending colon and rectum. No obstruction is seen. There are multiple loops of air-filled mildly prominent small bowel in the central abdomen. Impression: Central abdominal small bowel loops. No obstructive lesion seen. Moderate stool in the ascending colon and rectum. Pathologic fracture in the right proximal femur. Ill-defined radiolucency in the posterior elements at L5. Electronically Signed by Laurent Land MD 02/10/2019 11:20 A
== END ==
LOC: SKLAB5 08:40
PROVIDERS: ATTEND Internal Medicine
DX: M79.604 Pain in right leg (principal); R10.9 Unspecified abdominal pain

== ENCOUNTER → 2019-02-14 | Outpatient (REF) ==
[~2019-02-14] MED LIST changes: +ACET-683 PO; +ACET1TAB55 PO; +AMIT25TA PO; +BASA100I SC; -BENA40TA5 PO; +BENA40TA7 PO; +BISA10SU27 PR; +CARD180C4 PO; +COLA100C5 PO; +ELIQ5TAB PO; +ENEMENE22 PR; +GABA-843 PO; +GLUC1KIT IM; +INSUHUMDS SC; +LIDO5DIS41 TD; +MILKSUS3 PO; +MIRA3350 PO; +MULTCAP PO; -OMEP1CAP73 PO; +OMEP20CA4 PO; +PANT40TA3 PO; +SENN8.6T58 PO
[2019-02-14 07:52] LABS: HEMATOCRIT 26.5 % (36.0-47.0); MEAN CORPUSCULAR HGB CONC 30.2 g/dl (32.0-36.5); MEAN CORPUSCULAR VOLUME 89.5 fl (80.0-96.0); PLATELET COUNT, AUTOMATED 144 10^3/uL (150-450); RED BLOOD COUNT 2.96 10^6/uL (4.00-5.40); WHITE BLOOD COUNT 4.6 10^3/uL (4.0-10.0)
[2019-02-14 07:55] LABS: BLOOD UREA NITROGEN 17 MG/DL (7-18); CALCIUM LEVEL 8.7 MG/DL (8.8-10.2); CARBON DIOXIDE LEVEL 29 MEQ/L (21-32); CHLORIDE LEVEL 104 MEQ/L (98-107); CREATININE FOR GFR 0.36 MG/DL (0.55-1.30); GLOMERULAR FILTRATION RATE > 60.0 (>39); GLUCOSE, FASTING 149 MG/DL (70-100); SODIUM LEVEL 140 MEQ/L (136-145)
== END ==
LOC: SKLAB5 08:21
PROVIDERS: ATTEND Internal Medicine
DX: D64.9 Anemia, unspecified (principal); I10 Essential (primary) hypertension; R52 Pain, unspecified

== ENCOUNTER → 2019-02-17 | Outpatient (REF) ==
[2019-02-17 07:32] LABS: HEMATOCRIT 26.4 % (36.0-47.0); MEAN CORPUSCULAR HEMOGLOBIN 27.1 pg (27.0-33.0); MEAN CORPUSCULAR HGB CONC 30.3 g/dl (32.0-36.5); MEAN CORPUSCULAR VOLUME 89.5 fl (80.0-96.0); PLATELET COUNT, AUTOMATED 180 10^3/uL (150-450); RED BLOOD COUNT 2.95 10^6/uL (4.00-5.40)
== END ==
LOC: SKLAB5 12:24
PROVIDERS: ATTEND Internal Medicine
DX: D64.9 Anemia, unspecified (principal)

== ENCOUNTER → 2019-02-23 | Outpatient (CLI) | payer MEDICARE ==
--- NOTE | 2019-02-25 07:54 | RADONC ---
RADIATION ONCOLOGY CONSULTATION NOTE DATE: 02/23/2019 CHART NUMBER: [id number] DIAGNOSIS: Metastatic adrenal cortical carcinoma. Stage IV. ECOG performance status 4. CONSULTATION NOTE: Ms. Cantu is a delightful 73-year-old white female with the diagnosis of widely metastatic adrenal cortical carcinoma who is being sent to us for discussion of completion of radiation therapy that supposedly was begun at [facility] to her right femur. HISTORY OF PRESENT ILLNESS: The patient was in her usual state of health but presented to [facility] with right leg pain. An MRI was done and showed metastatic disease in the L1 vertebral body. She was subsequently transferred to [facility]. On 01/02/2019, an MRI of the spine again demonstrated uptake at L1 and L5. The CT of the abdomen and pelvis showed a left adrenal mass. Biopsy of the left adrenal mass was positive for adrenal cortical carcinoma. The spine was also biopsied and revealed metastatic adrenal carcinoma. The patient is having no back pain but was seen by radiation oncology at [facility] where she complained of right leg pain. A right hip pathologic femur fracture was noted and she underwent right femur closed reduction and cephalomedullary nailing on 02/12/2019. In addition, the patient had been treated preoperatively to that area on 01/10/2019 for a dose of 800 centigrade in a single fraction. The patient is presenting today reporting that she is having no hip pain whatsoever. In addition, the patient has no back pain. She is lying on a stretcher and unable to walk at this time, however. PAST MEDICAL HISTORY: The patient's past medicine medical history is positive for atrial fibrillation with rapid ventricular rate. She has a history of cardiovascular disease as well as diabetes and her fractured right femur. She has a history of hypertension. She had a right knee replacement in 2008. ALLERGIES: The patient is allergic to SULFA DRUGS. FAMILY HISTORY: The patient's family history is positive for a father who of some type of bone cancer. REVIEW OF SYSTEMS: The patient is immobilized. She is in a stretcher. While lying in the stretcher, she has no pain but otherwise her pain is located in the right femoral area. She has no back pain at this time. She denies nausea, vomiting, fevers, chills, night sweats, diplopia, headaches, anxiety or depression, visual disturbances, urinary or bowel difficulties. The patient is presenting in a stretcher having been brought from the nursing facility. HEENT exam is normocephalic, atraumatic. Extraocular movements are intact. There is no palpable lymphadenopathy present. Patient's lungs are clear to auscultation and percussion. Heart has regular rate and rhythm. The patients right femur has a surgical scar present consistent with her above history. ASSESSMENT: We have obtained the patient's radiation records. The initial referral was under the impression that she received the first of a series of fractionated treatments at [facility] and was then being sent to us for completion of therapy. After reviewing the treatment summary and consultation note, apparently the patient received a large dose of 800 cGy to that bone. It was planned at a solitary fraction and indeed no further radiation is indicated at this point to that area. The patient does have some disease in the lumbar spine but at the present time, the patient reports no pain in this area and therefore there does not appear to be any indication for palliative radiation therapy and this non-curable patient. I have scheduled the patient to return to us for routine followup visits. I have also instructed the patient and her family to contact us if we could be of any assistance or provide her with any information in the future. I have asked her to contact us should any new symptoms or strange issues develop. I made clear that radiation can be delivered to most of her bony skeleton without difficulty or to her brain or other organs for palliation. I also made clear to them that radiation will not extend her life but is merely there for quality of life purposes. In the meantime, the patient is continuing with her physical therapy and reports that she has been improving and getting somewhat stronger regularly. Indeed she has only had this surgery done a few days ago and we await the results of her overall therapy. Thank you for allowing us to participate in the care of this very pleasant woman. If I could be of any further assistance, please feel free to contact me at anytime. Sincerely, David Robledo
== END ==
LOC: M ONCR 14:00
PROVIDERS: ATTEND Radiology Radiation Oncology
DX: C74.90 Malignant neoplasm of unspecified part of unspecified adrenal gland (principal)

== ENCOUNTER → 2019-02-23 | Outpatient (REF) ==
[2019-02-23 07:50] LABS: HEMATOCRIT 30.2 % (36.0-47.0); HEMOGLOBIN 8.8 g/dl (12.0-15.5); MEAN CORPUSCULAR HEMOGLOBIN 26.6 pg (27.0-33.0); MEAN CORPUSCULAR HGB CONC 29.1 g/dl (32.0-36.5); MEAN CORPUSCULAR VOLUME 91.2 fl (80.0-96.0); PLATELET COUNT, AUTOMATED 225 10^3/uL (150-450); RED BLOOD COUNT 3.31 10^6/uL (4.00-5.40); WHITE BLOOD COUNT 5.6 10^3/uL (4.0-10.0)
== END ==
LOC: SKLAB5 10:56
PROVIDERS: ATTEND Internal Medicine
DX: D64.9 Anemia, unspecified (principal)

== ENCOUNTER → 2019-02-27 | Outpatient (REF) ==
[2019-02-27 06:20] LABS: HEMOGLOBIN 9.3 g/dl (12.0-15.5); MEAN CORPUSCULAR HEMOGLOBIN 27.8 pg (27.0-33.0); MEAN CORPUSCULAR VOLUME 92.8 fl (80.0-96.0); PLATELET COUNT, AUTOMATED 203 10^3/uL (150-450); RED BLOOD COUNT 3.34 10^6/uL (4.00-5.40); WHITE BLOOD COUNT 5.7 10^3/uL (4.0-10.0)
== END ==
LOC: SKLAB5 08:25
PROVIDERS: ATTEND Internal Medicine
DX: D64.9 Anemia, unspecified (principal)

== ENCOUNTER → 2019-03-02 | Outpatient (REF) | LOC: SKLAB5 10:06 | PROVIDERS: ATTEND Internal Medicine | DX: R31.9 Hematuria, unspecified (principal) ==

== ENCOUNTER → 2019-03-03 | Outpatient (REF) | LOC: SKLAB5 09:46 | PROVIDERS: ATTEND Internal Medicine | DX: R31.9 Hematuria, unspecified (principal) ==

== ENCOUNTER → 2019-03-04 | Outpatient (REF) | payer MEDICARE | LOC: SKLAB5 09:38 | PROVIDERS: ATTEND Internal Medicine | DX: R31.9 Hematuria, unspecified (principal) ==

== ENCOUNTER → 2019-03-13 | Outpatient (REF) ==
[2019-03-13 09:42] LABS: HEMATOCRIT 31.1 % (36.0-47.0); HEMOGLOBIN 9.2 g/dl (12.0-15.5); MEAN CORPUSCULAR HEMOGLOBIN 27.1 pg (27.0-33.0); MEAN CORPUSCULAR HGB CONC 29.6 g/dl (32.0-36.5); MEAN CORPUSCULAR VOLUME 91.5 fl (80.0-96.0); PLATELET COUNT, AUTOMATED 176 10^3/uL (150-450)
== END ==
LOC: SKLAB5 07:49
PROVIDERS: ATTEND Internal Medicine
DX: C74.90 Malignant neoplasm of unspecified part of unspecified adrenal gland (principal)

== ENCOUNTER → 2019-03-24 | Outpatient (REF) ==
--- NOTE | 2019-03-24 12:37 | REP ---
Right femur four views: The patient has had gamma nail internal fixation of a pathologic subtrochanteric fracture. Comparison is the postoperative study of 02/12/2019. The gamma nail traverses a lytic lesion in the metaphysis and proximal shaft of the femur. The fracture and hardware are maintained in satisfactory position alignment. The patient also has a total knee arthroplasty. Components appear tightly applied and in satisfactory position alignment on the views provided. There is no change from the comparison postoperative study. Electronically Signed by David Roberts MD 03/24/2019 12:29 P
== END ==
LOC: SKLAB5 10:32
PROVIDERS: ATTEND Internal Medicine
DX: S72.91XA Unspecified fracture of right femur, initial encounter for closed fracture (principal)

== ENCOUNTER → 2019-03-30 | Outpatient (REF) ==
[~2019-03-30] MED LIST changes: +BENA40TA5 PO; -BENA40TA7 PO; +OMEP1CAP73 PO; -OMEP20CA4 PO
[2019-03-30 08:22] LABS: HEMATOCRIT 34.1 % (36.0-47.0); MEAN CORPUSCULAR HEMOGLOBIN 26.2 pg (27.0-33.0); MEAN CORPUSCULAR HGB CONC 29.3 g/dl (32.0-36.5); MEAN CORPUSCULAR VOLUME 89.5 fl (80.0-96.0); PLATELET COUNT, AUTOMATED 164 10^3/uL (150-450); RED BLOOD COUNT 3.81 10^6/uL (4.00-5.40); WHITE BLOOD COUNT 6.6 10^3/uL (4.0-10.0)
== END ==
LOC: SKLAB5 10:24
PROVIDERS: ATTEND Internal Medicine
DX: D64.9 Anemia, unspecified (principal)

== ENCOUNTER → 2019-04-13 | Outpatient (REF) | payer MEDICARE ==
[~2019-04-13] MED LIST changes: -BENA40TA5 PO; +BENA40TA7 PO; -OMEP1CAP73 PO; +OMEP20CA4 PO
[2019-04-13 10:28] LABS: BLOOD UREA NITROGEN 14 MG/DL (7-18); CALCIUM LEVEL 9.7 MG/DL (8.8-10.2); CARBON DIOXIDE LEVEL 29 MEQ/L (21-32); CHLORIDE LEVEL 101 MEQ/L (98-107); CREATININE FOR GFR 0.62 MG/DL (0.55-1.30); GLOMERULAR FILTRATION RATE > 60.0 (>39); GLUCOSE, FASTING 318 MG/DL (70-100); POTASSIUM SERUM 3.6 MEQ/L (3.5-5.1); SODIUM LEVEL 138 MEQ/L (136-145)
== END ==
LOC: SKLAB5 07:59
PROVIDERS: ATTEND Internal Medicine
DX: R33.9 Retention of urine, unspecified (principal)

== ENCOUNTER → 2019-04-14 | Outpatient (CLI) | payer MEDICARE ==
[~2019-04-14] MED LIST changes: +ISOVUE-370 76% 100ML VIAL (Q9967) As Ordered ONE
--- NOTE | 2019-04-17 16:41 | REP ---
T of the abdomen and pelvis without and with IV contrast, without bowel contrast: The study is requested for evaluation of urinary retention. Comparison is an outside study dated 01/02/2019. On the outside study there was a large left suprarenal mass measuring 7.1 x 9.8 x 8.0 cm with tumor thrombus invading the left renal vein. Today this mass has increased in size and measures 11.9 x 9.4 by 15.1 cm. Tumor thrombus is again seen invading the left renal vein extending almost to the vena cava, similar to the prior study. There is a left pleural effusion as an interval change. By lumbar MRI dated 01/01/2019, there are metastatic lesions in the L1 vertebral body and in the left L5 facet and lamina. At that time there was minimal expansion of the L1 vertebral body with minimal thecal sac compression. These lesions were not visible on the comparison CT. However, on the CT today the L-1 lesion has significantly increased in size occupying almost all of the vertebral body, eroding through the posterior and right lateral cortices and extending into the thecal sac and into the right paravertebral area. The spinal cord is not optimally demonstrated on the CT images, however, I suspect there is spinal cord compression. Followup MRI might be considered. The L5 left lamina lesion today has significantly increased in size and has eroded through the lamina and pedicle on the left and extended into the thecal sac. This may result in nerve root compression. MRI follow-up might be considered. Additionally, the patient has extended into the spinous process with complete erosion and expansion of the spinous process. It is also extended slightly lateral to the left lamina into the paravertebral space. In addition, on the current study there is a large expansile lytic lesion anteriorly in the left iliac wing that has eroded through the anterior iliac wing and extends into the intrapelvic an extra pelvic soft tissues resulting in a large soft tissue mass measuring 11.3 cm transversely by 7.24 cm AP by 13.2 cm craniocaudad. In addition, there is an expansile lytic lesion in the sacrum. The on the right as an interval change measuring 8.2 cm transversely by 3.5 cm AP by 6.0 cm craniocaudad, not present previously. The hepatic parenchyma is homogeneous. The gallbladder, pancreas and spleen are unremarkable. The right adrenal, kidneys and abdominal aorta are unremarkable. There is no retroperitoneal adenopathy or mass. The bowel and mesentery are unremarkable. No mesenteric adenopathy is identified. No ascites. Pelvis: There is a Lawson catheter in the bladder. The bladder is collapsed. Uterus and adnexa are unremarkable. No pelvic adenopathy is identified. There is a large fecal bolus in the rectal ampulla, questionably an impaction. There is gamma nail fixation of the right hip. This is unchanged. There is a cyst in the right acetabular roof. This is unchanged. Impression: The known left suprarenal mass has significantly increased in size. Tumor thrombus invading the left renal vein is unchanged from the prior study. There is a new left pleural effusion as an interval change. The expansile lytic lesions involving the L1 and L5 vertebral bodies have significantly increased in size and likely result in spinal cord and nerve root compression. Followup MRI might be considered. There is a new expansile lytic lesion involving the sacrum superiorly on the right. There is a new expansile lytic lesion involving the ilium anteriorly on the left. There is a Lawson catheter in the bladder. Bladder is collapsed. Electronically Signed by David Roberts MD 04/17/2019 04:32 P
== END ==
LOC: M RAD 14:00
PROVIDERS: ATTEND Nurse Practitioner Family
DX: R33.9 Retention of urine, unspecified (principal); Z85.858 Personal history of malignant neoplasm of other endocrine glands
CPT/HCPCS: 74178; Q9967

== ENCOUNTER → 2019-04-17 | Outpatient (REF) | payer MEDICARE ==
[~2019-04-17] MED LIST changes: +BENA40TA5 PO; -BENA40TA7 PO; -ISOVUE-370 76% 100ML VIAL (Q9967) As Ordered ONE; +OMEP1CAP73 PO; -OMEP20CA4 PO
--- NOTE | 2019-04-17 15:04 | REP ---
Portable chest x-ray: Single view. History: Left lower lobe edema, abnormal lung sounds. Comparison chest x-ray: February 10, 2019. Findings: The left hemidiaphragm is obscured with hazy opacity today. Question pleural effusion. Mildly prominent heart is again seen. Lung garza are otherwise clear. There are degenerative changes in the thoracic spine and in both shoulders. Pulmonary vasculature is not increased. Impression: Hazy opacity in the left base partially obscuring the left hemidiaphragm question effusion versus infiltrate . Electronically Signed by Laurent Land MD 04/17/2019 05:18 P
== END ==
LOC: SKLAB5 12:00
PROVIDERS: ATTEND Internal Medicine
DX: R06.9 Unspecified abnormalities of breathing (principal); R91.8 Other nonspecific abnormal finding of lung field

== ENCOUNTER → 2019-04-20 | Outpatient (CLI) | payer MEDICARE ==
[~2019-04-20] MED LIST changes: -BENA40TA5 PO; +BENA40TA7 PO; -OMEP1CAP73 PO; +OMEP20CA4 PO
== END ==
LOC: M ONCR 10:01
PROVIDERS: ATTEND Radiology Radiation Oncology
DX: Z53.9 Procedure and treatment not carried out, unspecified reason (principal)

== ENCOUNTER → 2019-04-21 | Outpatient (REF) | payer MEDICARE ==
[2019-04-21 08:18] LABS: BLOOD UREA NITROGEN 21 MG/DL (7-18); CALCIUM LEVEL 9.5 MG/DL (8.8-10.2); CARBON DIOXIDE LEVEL 34 MEQ/L (21-32); CHLORIDE LEVEL 102 MEQ/L (98-107); CREATININE FOR GFR 0.67 MG/DL (0.55-1.30); GLOMERULAR FILTRATION RATE > 60.0 (>39); GLUCOSE, FASTING 106 MG/DL (70-100); NT-PRO BNP 2839 PG/ML (<450); POTASSIUM SERUM 3.4 MEQ/L (3.5-5.1); SODIUM LEVEL 142 MEQ/L (136-145)
== END ==
LOC: SKLAB5 07:19
PROVIDERS: ATTEND Internal Medicine
DX: J90 Pleural effusion, not elsewhere classified (principal); I50.9 Heart failure, unspecified

== ENCOUNTER → 2019-04-24 | Outpatient (RCR) | payer MEDICARE ==
--- NOTE | 2019-04-21 09:54 | RADONC ---
RADIATION ONCOLOGY SIMULATION NOTE DATE: 04/20/2019 CHART NUMBER: [id number] Ms. Cantu Was taken to the CT scan for CT simulation of her lumbar spinal field. CT was accomplished without difficulty or discomfort. Radiation treatment planning is underway and radiation treatments will begin today. An immobilization device was created and will be used throughout the course of treatment. It was created without difficulty or discomfort. I was physically present throughout the course of CT simulation.
--- NOTE | 2019-04-22 07:41 | RADONC ---
RADIATION ONCOLOGY CONSULTATION NOTE DATE: 04/20/2019 CHART #: [id number] DIAGNOSIS: Metastatic adrenal cortical carcinoma. STAGE: IV, widely metastatic, end stage. ECOG PERFORMANCE STATUS: 4. CONSULTATION NOTE: Ms. Cantu is a very pleasant 73-year-old white female with the diagnosis of widely metastatic adrenal cortical carcinoma who was initially seen by us on 02/23/2019 for discussion of possible palliative radiation therapy. At that time, the patient was bed-bound as well as incontinent. She presented to us for discussion of continued radiation to her right femur which was initiated at [facility]. At that time, we were able to obtain those records and she apparently completed her course of radiation to her right hip for the pathologic fracture. We set her up for routine followup, but more recently I received a CT scan ordered by MURIEL Choudhary, at her long term for urinary retention and incontinence as well as continued semi paralysis of her lower extremities. The CT scan showed an expansile lytic lesion involving L1 and L5 vertebral bodies that had increased significantly in size and resulted now in nerve root and possible spinal cord compression. It recommended that if clinically indicated an MRI might help further delineate this. There were also continued New and expansive lesions involving multiple bones and soft tissues. In light of the spinal involvement, we called the patient down for further evaluation and discussion. The patient today was lifted with a Alex lift. She continues to basically be unable to walk or move her lower extremities. In addition, she continues have an indwelling catheter and has been urinary incontinent. She is not presently again having any pain or discomfort whatsoever from any of the bony lesions. She reports that she is comfortable in her long term bed. REVIEW OF SYSTEMS: The patient's review of systems once again is positive for continued urinary incontinence and she is bedridden. She has very little energy. Other than that, she is having no pain, discomfort, nausea, vomiting, fevers, chills, night sweats, diplopia, headaches, anxiety, depression, anorexia, weight loss. PHYSICAL EXAMINATION: The patient is a well-developed, comfortable elderly woman in no acute distress who appears comfortable at this point. HEENT: Normocephalic, atraumatic. Extraocular movements are intact. The remainder of the physical exam was deferred at this time. ASSESSMENT: I reviewed the massive sites of disease throughout her body with the patient and her family. They are aware that the goal and care of this patient is to keep her comfortable. She is not receiving any type of systemic therapy nor is she a candidate for systemic therapy. She has been resting in her long term room. I made clear that the role of radiation is purely palliative and [id number]. Indeed, she has no pain and the question is whether or not this actually even needs treatment at this point. In light of the fact that she still has some motion in her legs, I think it reasonable to offer her radiation. This vertebral body has not yet collapsed and further erosion and fracture could change the situation to one that is very painful. I have therefore scheduled her for initiation of radiation therapy to begin today. The lesion is not confined within a bony space and therefore I do not anticipate a need for Decadron to be delivered at this time. We will continue to follow her closely and can initiate steroid three treatments at anytime if it would benefit her. cc: Kelton Wong Jr, MD
--- NOTE | 2019-04-24 13:44 | RADONC ---
RADIATION ONCOLOGY PROGRESS NOTE DATE OF SERVICE: 04/24/2019 CHART #: [id number] Ms. Cantu is presently at a dose of 900 cGy to her lumbar spine and is tolerating treatments quite well at this point with no complaints related to her radiation therapy. She reports no pain or other problems. She has had no nausea or vomiting. REVIEW OF SYSTEMS: The patient's review of systems is unchanged. She continues to be bedridden, in no pain, but with urinary incontinence and inability to walk. The remainder of her review of systems is negative. PHYSICAL EXAMINATION: The patient's skin is in good condition with no evidence of moist or dry desquamation. The remainder of her physical exam remains unchanged as well. ASSESSMENT: Ms. Cantu is tolerating her treatments without difficulty and radiation will continue as scheduled.
== END ==
LOC: M ONCR 04-20 11:18
PROVIDERS: ATTEND Radiology Radiation Oncology
DX: C79.51 Secondary malignant neoplasm of bone (principal)
CPT/HCPCS: 77290; 77307; 77334; 77412; 77417; G0463

== ENCOUNTER → 2019-04-24 | Outpatient (REF) | payer MEDICARE ==
[2019-04-24 08:19] LABS: BLOOD UREA NITROGEN 22 MG/DL (7-18); CALCIUM LEVEL 9.6 MG/DL (8.8-10.2); CARBON DIOXIDE LEVEL 32 MEQ/L (21-32); CHLORIDE LEVEL 102 MEQ/L (98-107); CREATININE FOR GFR 0.53 MG/DL (0.55-1.30); GLOMERULAR FILTRATION RATE > 60.0 (>39); GLUCOSE, FASTING 74 MG/DL (70-100); NT-PRO BNP 2924 PG/ML (<450); POTASSIUM SERUM 3.3 MEQ/L (3.5-5.1); SODIUM LEVEL 143 MEQ/L (136-145)
== END ==
LOC: SKLAB5 07:17
PROVIDERS: ATTEND Internal Medicine
DX: R60.9 Edema, unspecified (principal); I48.91 Unspecified atrial fibrillation; D64.9 Anemia, unspecified; I50.30 Unspecified diastolic (congestive) heart failure; I11.0 Hypertensive heart disease with heart failure; Z79.01 Long term (current) use of anticoagulants

== ENCOUNTER → 2019-04-28 | Outpatient (REF) | payer MEDICARE ==
[~2019-04-28] MED LIST changes: +BENA40TA5 PO; -BENA40TA7 PO; +OMEP1CAP73 PO; -OMEP20CA4 PO
[2019-04-28 08:03] LABS: HEMATOCRIT 36.7 % (36.0-47.0); HEMOGLOBIN 10.9 g/dl (12.0-15.5); MEAN CORPUSCULAR HEMOGLOBIN 25.5 pg (27.0-33.0); MEAN CORPUSCULAR HGB CONC 29.7 g/dl (32.0-36.5); MEAN CORPUSCULAR VOLUME 85.7 fl (80.0-96.0); PLATELET COUNT, AUTOMATED 156 10^3/uL (150-450); RED BLOOD COUNT 4.28 10^6/uL (4.00-5.40); WHITE BLOOD COUNT 4.3 10^3/uL (4.0-10.0)
[2019-04-28 08:24] LABS: BLOOD UREA NITROGEN 25 MG/DL (7-18); CALCIUM LEVEL 10.2 MG/DL (8.8-10.2); CARBON DIOXIDE LEVEL 36 MEQ/L (21-32); CHLORIDE LEVEL 101 MEQ/L (98-107); CREATININE FOR GFR 0.74 MG/DL (0.55-1.30); GLOMERULAR FILTRATION RATE > 60.0 (>39); GLUCOSE, FASTING 168 MG/DL (70-100); POTASSIUM SERUM 3.4 MEQ/L (3.5-5.1); SODIUM LEVEL 143 MEQ/L (136-145)
== END ==
LOC: SKLAB5 08:02
PROVIDERS: ATTEND Internal Medicine
DX: D64.9 Anemia, unspecified (principal); E87.6 Hypokalemia

== ENCOUNTER 2019-05-03 10:22 | Outpatient (RCR) | payer MEDICARE ==
--- NOTE | 2019-05-02 10:04 | RADONC ---
RADIATION ONCOLOGY PROGRESS NOTE DATE: 05/01/2019 CHART #: [id number] Ms. Cantu is presently at a dose of 2400 cGy to her lumbar sacral spine and is tolerating treatments quite well at this point with no complaints related to her radiation therapy. She continues have no pain or other problems. REVIEW OF SYSTEMS: The patient's review of systems is continuing to be positive for physical limitations. She remains basically bedridden. This has not changed and indeed has not changed since I met this patient. PHYSICAL EXAMINATION: The patient's skin is in good condition with no evidence of radiation change present. Overall, radiation is well tolerated and will continue as scheduled. I do not know if we will be of any benefit to this unfortunate patient who is basically on comfort measures only.
[~2019-05-03 10:22] MED LIST changes: -BENA40TA5 PO; +BENA40TA7 PO; -OMEP1CAP73 PO; +OMEP20CA4 PO
--- NOTE | 2019-05-05 07:40 | RADONC ---
RADIATION ONCOLOGY TREATMENT SUMMARY DATE: 05/03/2019 CHART NUMBER: [id number] DIAGNOSIS: Metastatic adrenal cortical carcinoma. STAGE: IV, widely metastatic, end stage. ECOG PERFORMANCE STATUS: 4. TREATMENT SUMMARY: Ms. Cantu is a very pleasant 73-year-old white female with the diagnosis of widely metastatic adrenal cortical carcinoma who is seen by us for consideration of palliative radiation therapy to her lumbosacral spine. We treated the patient to her lumbosacral spine from the levels of T12 through the SI joints for a total dose of 3000 cGy delivered in 10 fractions of 300 cGy each over 13 elapsed days from 04/20/2019 through 05/03/2019. The patient's spine was treated on a linear accelerator utilizing a 15 MV photon beam via single posterior field. Ms. Cantu tolerated her treatments quite well and was able to complete therapy as prescribed without interruption. I have scheduled the patient to see me again in 1 month for further followup. She will continue to be followed by her primary care physician, Kelton Wong MD. She is basically on comfort measures and at this time is quite comfortable. cc: Kelton Wong Jr, MD
== END 2019-05-25 ==
LOC: M ONCR 10:22
PROVIDERS: ATTEND Radiology Radiation Oncology
DX: C79.51 Secondary malignant neoplasm of bone (principal)

== ENCOUNTER → 2019-05-04 | Outpatient (REF) | payer MEDICARE ==
[~2019-05-04] MED LIST changes: +BENA40TA5 PO; -BENA40TA7 PO; +OMEP1CAP73 PO; -OMEP20CA4 PO
[2019-05-04 09:10] LABS: BLOOD UREA NITROGEN 23 MG/DL (7-18); CALCIUM LEVEL 9.2 MG/DL (8.8-10.2); CARBON DIOXIDE LEVEL 39 MEQ/L (21-32); CHLORIDE LEVEL 100 MEQ/L (98-107); CREATININE FOR GFR 0.53 MG/DL (0.55-1.30); GLOMERULAR FILTRATION RATE > 60.0 (>39); GLUCOSE, FASTING 71 MG/DL (70-100); POTASSIUM SERUM 2.7 MEQ/L (3.5-5.1); SODIUM LEVEL 144 MEQ/L (136-145)
[2019-05-04 17:21] LABS: BLOOD UREA NITROGEN 24 MG/DL (7-18); CALCIUM LEVEL 9.2 MG/DL (8.8-10.2); CARBON DIOXIDE LEVEL 35 MEQ/L (21-32); CHLORIDE LEVEL 100 MEQ/L (98-107); CREATININE FOR GFR 0.64 MG/DL (0.55-1.30); GLOMERULAR FILTRATION RATE > 60.0 (>39); GLUCOSE, FASTING 101 MG/DL (70-100); MAGNESIUM LEVEL 1.5 MG/DL (1.8-2.4); POTASSIUM SERUM 3.2 MEQ/L (3.5-5.1); SODIUM LEVEL 142 MEQ/L (136-145)
== END ==
LOC: SKLAB5 07:20
PROVIDERS: ATTEND Internal Medicine
DX: E87.6 Hypokalemia (principal)

== ENCOUNTER → 2019-05-05 | Outpatient (REF) | payer MEDICARE ==
[2019-05-05 08:30] LABS: BLOOD UREA NITROGEN 23 MG/DL (7-18); CALCIUM LEVEL 9.2 MG/DL (8.8-10.2); CARBON DIOXIDE LEVEL 36 MEQ/L (21-32); CHLORIDE LEVEL 103 MEQ/L (98-107); GLOMERULAR FILTRATION RATE > 60.0 (>39); GLUCOSE, FASTING 68 MG/DL (70-100); POTASSIUM SERUM 3.5 MEQ/L (3.5-5.1); SODIUM LEVEL 145 MEQ/L (136-145)
== END ==
LOC: SKLAB5 07:17
PROVIDERS: ATTEND Internal Medicine
DX: I50.9 Heart failure, unspecified (principal)

== ENCOUNTER → 2019-05-08 | Outpatient (REF) | payer MEDICARE ==
[~2019-05-08] MED LIST changes: -BENA40TA5 PO; +BENA40TA7 PO; -OMEP1CAP73 PO; +OMEP20CA4 PO
[2019-05-08 11:06] LABS: BLOOD UREA NITROGEN 28 MG/DL (7-18); CALCIUM LEVEL 9.3 MG/DL (8.8-10.2); CARBON DIOXIDE LEVEL 34 MEQ/L (21-32); CHLORIDE LEVEL 103 MEQ/L (98-107); CREATININE FOR GFR 0.69 MG/DL (0.55-1.30); GLOMERULAR FILTRATION RATE > 60.0 (>39); GLUCOSE, FASTING 144 MG/DL (70-100); MAGNESIUM LEVEL 1.3 MG/DL (1.8-2.4); POTASSIUM SERUM 2.9 MEQ/L (3.5-5.1); SODIUM LEVEL 145 MEQ/L (136-145)
== END ==
LOC: SKLAB5 07:04
PROVIDERS: ATTEND Internal Medicine
DX: E87.6 Hypokalemia (principal)

== ENCOUNTER → 2019-05-11 | Outpatient (REF) | payer MEDICARE ==
[2019-05-11 09:05] LABS: BLOOD UREA NITROGEN 32 MG/DL (7-18); CALCIUM LEVEL 9.5 MG/DL (8.8-10.2); CARBON DIOXIDE LEVEL 33 MEQ/L (21-32); CHLORIDE LEVEL 105 MEQ/L (98-107); CREATININE FOR GFR 0.64 MG/DL (0.55-1.30); GLOMERULAR FILTRATION RATE > 60.0 (>39); GLUCOSE, FASTING 98 MG/DL (70-100); MAGNESIUM LEVEL 1.5 MG/DL (1.8-2.4); POTASSIUM SERUM 3.5 MEQ/L (3.5-5.1); SODIUM LEVEL 144 MEQ/L (136-145)
== END ==
LOC: SKLAB5 07:35
PROVIDERS: ATTEND Internal Medicine
DX: E87.6 Hypokalemia (principal)